=== PATIENT | female | born 1935 | race Caucasian/White ===

== ENCOUNTER 2023-06-06 11:35 | Observation (INO) ==
[2023-06-06 12:59] LABS: Basophils # (auto) 0.04 K/uL (0.00-0.20); Basophils % (auto) 0.4 %; Eosinophils # (auto) 0.42 K/uL (0.00-0.50); Eosinophils % (auto) 4.6 %; Hematocrit (blood only) 37.2 % (37.0-47.0); Immature Granulocytes # (auto) 0.03 K/uL (0.01-0.20); Immature Granulocytes % (auto) 0.3 %; Lymphocytes # (auto) 2.32 K/uL (1.20-3.40); Lymphocytes % (auto) 25.6 %; Mean Corpuscular Hemoglobin 27.6 pg (25.0-34.0); Mean Corpuscular Hgb Conc 32.3 g/dL (32.0-36.0); Mean Corpuscular Volume 85.7 fL (80.0-100.0); Mean Platelet Volume 10.6 fL (9.4-12.4); Monocytes # (auto) 0.94 K/uL (0.11-0.59); Monocytes % (auto) 10.4 %; Neutrophils % (auto) 58.7 %; Platelet Count 204 K/uL (130-400); RDW Standard Deviation 40.6 fL (36.4-46.3); Red Blood Count 4.34 M/uL (4.20-5.40); White Blood Count 9.05 K/ul (4.8-10.8)
--- NOTE | 2023-06-06 13:09 | XRay Report ---
XR chest 1V not portable HISTORY: fever COMPARISON: None. FINDINGS: No pneumothorax. No pleural effusions. The cardiac silhouette is mildly enlarged. No eviden ce for pulmonary edema. The upper lungs zones are clear. Small patchy densities at the right lung bas e. Left coronary artery stent is noted. No acute fractures. Degenerative changes within the shoulders . IMPRESSION: Small patchy density at the right lung base. This favors a pneumonia and could be due to prior aspira tion. ACT 112: Negative or not required by law. Electronically signed by: Hong Cherry M.D. 06/06/2023 1:08 PM
[2023-06-06 13:18] LABS: Troponin I High Sensitivity 11.9 pg/ml (0-14)
[2023-06-06 13:19] LABS: Albumin Globulin Ratio 1.1 (0.9-2); Albumin Level 4.1 gm/dl (3.4-5.0); BUN Creatinine Ratio 20.1 (10-20); Bilirubin,Total 0.6 mg/dl (0.2-1.0); Creatinine Clr Calc Pharmacy 25.4 ml/min; Est GFR (African American) 41.8 ml/min; Globulin 3.7 gm/dl (2.5-4.0); Potassium 4.5 mmol/L (3.5-5.1); Total Protein 7.8 gm/dl (6.0-8.3)
[2023-06-06 13:30] LABS: Appearance Urine Cloudy (Clear); Bacteria Urine Automated 2+ (Negative); Bilirubin Urine Negative (Negative); Blood Urine 1+ (Negative); Color Urine Dark Yellow; Epithelial Cell Urine Auto >30 /lpf (0-5); Glucose Urine UA Trace (Negative); Ketones Urine Trace (Negative); Leukocyte Esterase Urine 2+ (Negative); Nitrite Urine Positive (Negative); Protein Urine 2+ (Negative); Specific Gravity Urine 1.018 (1.000-1.030); Urobilinogen Urine Negative (Negative); WBC Urine Automated >30 /hpf (0-5); pH Urine 5.5 (4.5-7.5)
--- NOTE | 2023-06-06 14:09 | Emergency Department Note ---
Impression & Plan Recurrent UTI, Pneumonia ED Provider Note NAME: PHUC LEWIS AGE: 87 SEX: F : 1935 ARRIVES VIA: Walk-In INFORMANT: Patient ED PROVIDER(S): Jose De Jesus Santana DO CHIEF COMPLAINT: Cough congestion fevers and shaking chills HPI: Patient is an 87-year-old female with a past medical history of urinary incontinence and recurrent UTIs who presents to the ER for cough, congestion, and shaking chills which been present since this past Sunday. She admits to fevers as high as 102. Last time she checked was yesterday. She does admit to some intermittent vomiting daily. She has no dysuria but has baseline incontinence. No belly pain. No headache or change in vision. No other exacerbating or remitting factors. ADDITIONAL HISTORY OBTAINED: Per HPI Chronic Medical/Social Conditions Affecting Care: Per HPI PAST MEDICAL HISTORY:See Below PAST SURGICAL HISTORY:See Below FAMILY HISTORY:See Below SOCIAL HISTORY:See Below HOME MEDICATIONS:See Below ALLERGIES:See Below VITALS:See Below PHYSICAL EXAMINATION: GENERAL: Sitting up in Chair, alert, well appearing, well nourished, no distress, non-toxic, intermittent cough EYE EXAM: normal conjunctiva. OROPHARYNX: no exudate, no erythema, lips, buccal mucosa, and tongue normal and mucous membranes are moist NECK: supple, no nuchal rigidity, no adenopathy, non-tender LUNGS: Clear to auscultation. Normal chest wall mechanics HEART: no murmurs, S1 normal and S2 normal ABDOMEN: abdomen soft, non-tender, normo-active bowel sounds, no masses, no rebound or guarding. UPPER EXTREMITIES: upper extremities are grossly normal. LOWER EXTREMITIES: No pitting edema. NEURO EXAM: Normal sensorium, cranial nerves II-XII grossly intact, normal speech, no gross weakness of arms, no gross weakness of legs. MEDICAL DECISION MAKING: Patient is an 87-year-old female who presents ER with above-stated complaint. IV was established blood work was obtained. Labs show no significant leukocytosis or anemia. BMP with mild hyponatremia 133. Creatinine 1.3. LFTs bilirubin was unremarkable. Troponin was negative. Lipase was normal. UA was contaminated but does suggest UTI with nitrates and +2 bacteria. Viral panel was positive for influenza. Chest x-ray with infiltrates per radiology. Patient was covered with IV Rocephin and azithromycin. She given IV fluids. Updated bedside. Discussed with the hospitalist admitted for further workup. Rocephin will cover both UTI and pneumonia in combination with the azithromycin Consults/Care Managements Discussions: Per MDM Triage Nursing notes reviewed. Limited review of prior medical records performed Vital Signs: reviewed and remarkable for tachy Differential diagnosis: Differential diagnoses includes but is not limited to pneumonia, bronchitis, COPD/Asthma exacerbation, pneumothorax, pulmonary embolism, congestive heart failure, acute coronary syndrome ER treatment provided: See below Diagnostics interpreted by me include EKG and cardiac monitoring as listed below: -Cardiac Monitoring: An order was placed for continuous cardiac monitoring. The monitor shows a rate of 80 with sinus rhythm. -ECG: Sinus rhythm rate 86 Normal axis No PVCs QTc 416 -Laboratory studies:Interpreted by me as stated above in MDM and shown below. Imaging studies: Xrays: As interpreted by me: Portable AP upright 1 view of the chest per my read showed no focal infiltrate CTs show: none Procedures:none Critical Care: None Past Med/Surg History Social History Smoking Status: Never smoker Preferred Language: Danish Feels Safe at Home: Yes Allergies Allergies Allergy/AdvReac Type Severity Reaction Status Date / Time No Known Allergies Allergy Unverified 03/20/23 11:14 Home Meds Home Medications Medication Instructions Recorded Confirmed amlodipine 5 mg tablet 5 mg PO DAILY 03/20/23 06/06/23 aspirin 81 mg tablet,delayed 81 mg PO DAILY 03/20/23 06/06/23 release (Adult Low Dose Aspirin) linagliptin 5 mg tablet (Tradjenta) 5 mg PO DAILY 03/20/23 06/06/23 metoprolol succinate 25 mg 25 mg PO BID 03/20/23 06/06/23 tablet,extended release 24 hr nitroglycerin 2.5 mg 2.5 mg PO BID 03/20/23 03/20/23 capsule,extended release pantoprazole 40 mg tablet,delayed 40 mg PO DAILY 03/20/23 06/06/23 release ergocalciferol (vitamin D2) 1,250 1,250 mcg PO WK 06/06/23 06/06/23 mcg (50,000 unit) capsule fluticasone propionate 50 50 mcg intranasal DAILY 06/06/23 06/06/23 mcg/actuation nasal spray,suspension hydrochlorothiazide 25 mg tablet 25 mg PO DAILY 06/06/23 06/06/23 isosorbide mononitrate 60 mg 60 mg PO DAILY 06/06/23 06/06/23 tablet,extended release 24 hr lisinopril 20 mg tablet 20 mg PO DAILY 06/06/23 06/06/23 magnesium oxide 400 mg (241.3 mg 400 mg PO BID 06/06/23 06/06/23 magnesium) tablet rosuvastatin 20 mg tablet 20 mg PO DAILY 06/06/23 06/06/23 semaglutide 0.25 mg or 0.5 mg (2 0.25 mg subcut WK 06/06/23 06/06/23 mg/3 mL) subcutaneous pen injector (Ozempic) Results & Data (ED) Vital Signs Vital Signs - 24 hr 06/06/23 11:36 06/06/23 11:36 06/06/23 14:39 Temperature 36.6 C Temperature Source Temporal Artery Scan Pulse Rate 108 H Pulse Rate [Apical] 90 Respiratory Rate 18 16 16 Respiratory Depth Normal Blood Pressure 133/66 Blood Pressure [Left Arm] 151/94 H Blood Pressure Mean 88 Blood Pressure Mean [Left Arm] 113 Pulse Oximetry 97 97 Oxygen Delivery Method Room Air Room Air Sepsis Recent Fever Within 48 Hours No Sepsis New/Unexplained Change in Mental Status N/A Sepsis Action Taken by Nursing No Action Required Laboratory Data 06/06/23 12:29 06/06/23 12:26 Lab Results 06/06/23 06/06/23 06/06/23 Range/Units 12:26 12:29 13:08 WBC 9.05 (4.8-10.8) K/ul RBC 4.34 (4.20-5.40) M/uL Hgb 12.0 (12.0-16.0) g/dl Hct 37.2 (37.0-47.0) % MCV 85.7 (80.0-100.0) fL MCH 27.6 (25.0-34.0) pg MCHC 32.3 (32.0-36.0) g/dL RDW Std Deviation 40.6 (36.4-46.3) fL RDW Coeff of Ingris 13.0 (11.5-14.5) % Plt Count 204 (130-400) K/uL MPV 10.6 (9.4-12.4) fL Immature Gran % (Auto) 0.3 % Neut % (Auto) 58.7 % Lymph % (Auto) 25.6 % [place] % (Auto) 10.4 % Eos % (Auto) 4.6 % Baso % (Auto) 0.4 % Neut # (Auto) 5.30 (1.40-6.50) K/uL Lymph # (Auto) 2.32 (1.20-3.40) K/uL [place] # (Auto) 0.94 H (0.11-0.59) K/uL Eos # (Auto) 0.42 (0.00-0.50) K/uL Baso # (Auto) 0.04 (0.00-0.20) K/uL Immature Gran # (Auto) 0.03 (0.01-0.20) K/uL Sodium 133 L (136-145) mmol/L Potassium 4.5 (3.5-5.1) mmol/L Chloride 95 L (98-107) mmol/L Carbon Dioxide 27 (21-32) mmol/L Anion Gap 11 (3-11) BUN 27 H (6-23) mg/dl Creatinine 1.34 H (0.6-1.2) mg/dl Est Cr Clr Drug Dosing 25.4 ml/min Est GFR ( Amer) 41.8 ml/min Est GFR (Non-Af Amer) 36.0 ml/min BUN/Creatinine Ratio 20.1 H (10-20) Glucose 227 H (70-99(Fasting)) mg/dl Calcium 10.0 (8.6-10.3) mg/dl Total Bilirubin 0.6 (0.2-1.0) mg/dl AST 33 (13-39) U/L ALT 21 (7-52) U/L Alkaline Phosphatase 63 (34-104) U/L Troponin I High Sens 11.9 (0-14) pg/ml Total Protein 7.8 (6.0-8.3) gm/dl Albumin 4.1 (3.4-5.0) gm/dl Globulin 3.7 (2.5-4.0) gm/dl Albumin/Globulin Ratio 1.1 (0.9-2) Lipase 34 (11-82) U/L Urine Color Dark Yellow Urine Appearance Cloudy A (Clear) Urine pH 5.5 (4.5-7.5) Ur Specific [place] 1.018 (1.000-1.030) Urine Protein 2+ H (Negative) Urine Glucose (UA) Trace H (Negative) Urine Ketones Trace H (Negative) Urine Blood 1+ H (Negative) Urine Nitrite Positive A (Negative) Urine Bilirubin Negative (Negative) Urine Urobilinogen Negative (Negative) Ur Leukocyte Esterase 2+ H (Negative) Urine WBC (Auto) >30 H (0-5) /hpf Urine RBC (Auto) 5-10 H (0-4) /hpf U Hyaline Cast (Auto) 1-5 (0-5) /lpf U Epithel Cells (Auto) >30 H (0-5) /lpf Urine Bacteria (Auto) 2+ H (Negative) Administered Medications Amlodipine Besylate (Amlodipine Besylate 5 Mg Tab) 5 mg PO DAILY RANJANA Stop: 07/06/23 16:50 Last Admin: 06/06/23 18:44 Dose: 5 mg Documented By: OAC Aspirin (Aspirin 81 Mg Ectab) 81 mg PO DAILY RANJANA Stop: 07/06/23 16:50 Last Admin: 06/06/23 18:44 Dose: 81 mg Documented By: OAC Insulin Aspart (Insulin Aspart Per Unit Charge) 0 units SC ACHS RANJANA Stop: 07/06/23 16:29 Last Admin: 06/06/23 18:44 Dose: 3 units Documented By: OAC Co-signed By: ACC Lisinopril (Lisinopril 20 Mg Tab) 20 mg PO DAILY RANJANA Stop: 07/06/23 16:50 Last Admin: 06/06/23 18:46 Dose: 20 mg Documented By: OAC Discontinued Medications Ceftriaxone Sodium (Rocephin) 2,000 mg in 50 mls @ 100 mls/hr IV NOW STA Stop: 06/06/23 14:16 Last Infusion: 06/06/23 15:47 Dose: Infused Documented By: Admin: 06/06/23 15:06 Dose: 100 mls/hr Documented By: OAC Azithromycin 500 mg/ Dextrose 255 mls @ 127.5 mls/hr IV NOW STA Stop: 06/06/23 15:46 Last Admin: 06/06/23 15:39 Dose: 127.5 mls/hr Documented By: OAC Sodium Chloride (Nss) 1,000 mls @ 999 mls/hr IV .Q1H1M ONE Stop: 06/06/23 14:47 Last Infusion: 06/06/23 15:48 Dose: Infused Documented By: Admin: 06/06/23 14:31 Dose: 999 mls/hr Documented By: KV Imaging Data Radiologist's Impression: Chest X-Ray 06/06/23 12:34 XR chest 1V not portable HISTORY: fever COMPARISON: None. FINDINGS: No pneumothorax. No pleural effusions. The cardiac silhouette is mildly enlarged. No evidence for pulmonary edema. The upper lungs zones are clear. Small patchy densities at the right lung base. Left coronary artery stent is noted. No acute fractures. Degenerative changes within the shoulders. IMPRESSION: Small patchy density at the right lung base. This favors a pneumonia and could be due to prior aspiration. ACT 112: Negative or not required by law. Electronically signed by: Hong Cherry M.D. 06/06/2023 1:08 PM Discharge Plan Visit Data Chief Complaint: Illness Stated Complaint: UTI, POSSIBLE BLOOD CLOT, WEAKNESS, FEVER, CONGEST ED Provider: Jose De Jesus Santana Discharge Problem: Recurrent UTI, Pneumonia Patient Disposition: Admitted As Inpatient Discharge Instructions Interventions: ED Discharge Assessment Last Done: 06/06/23 16:51 Discharge Problem: Pneumonia Qualifiers: Pneumonia type: due to unspecified organism Laterality: unspecified laterality Lung location: unspecified part of lung Qualified Code(s): J18.9 - Pneumonia, unspecified organism
[2023-06-06] MEDS: SODIUM CHLORIDE 0.9% 1,000 ML IV ONE (14:31)
[2023-06-06] MEDS ORDERED: GLUCOSE 40% GEL 15 GM TUBE PO PRN (14:43)
[2023-06-06] MEDS ORDERED: CARBOHYDRATES FOR HYPOGLYCEMIA PO PRN (14:43)
[2023-06-06] MEDS ORDERED: GLUCAGON FOR INJ 1 MG VIAL SQ PRN (14:43)
[2023-06-06] MEDS ORDERED: DEXTROSE 50% 50 ML SYRINGE IV PRN (14:43)
[2023-06-06] MEDS ORDERED: GLUCOSE 10 TAB/TUBE PO PRN (14:43)
--- NOTE | 2023-06-06 14:58 | History & Physical Report ---
Date of Service June 06, 2023 Assessment & Plan (1) Recurrent UTI: Plan: Assessment: 1. Right lower lobe pneumonia. IV Rocephin IV azithromycin, speech therapy for swallow eval. The patient denies any choking with eating or drinking. Sputum cultures ordered. 2. Urinary tract infection with recurrent UTIs. Follows with urology. IV Rocephin. Urine cultures. Blood cultures have been obtained as well. 3. Rule out respiratory viral illness bio fire pending. 4. Recent hospitalization at [facility] we will try to obtain records. This was last and discharged Sunday. Was supposed to be on oral antibiotic does not know the name of this but was not taking due to nausea. 5. Diabetes mellitus type 2 [id number]. Basal bolus insulin sliding scales been ordered. 6. GERD-continue home medications. 7. Hypertension-continue home medications. 8. Debility the patient is beginning weaker at home per the patient and daughter with consulted PT for evaluation. Plan: As described above. Please refer to orders for further planning. History of Present Illness Chief Complaint: Shortness of breath, cough, fever, rigor, Primary Care Provider: KERRY Bermudez This is a pleasant 87-year-old female who has had the above symptoms ongoing on and off for approximately a week. He actually was inpatient at [facility] from night last week to Sunday. She was discharged home on oral antibiotic but did not take them because it made her nauseated. Today her symptomatology continues to worsen with rigors and chills and fever. She had a fever of 102 at home. She presented for further evaluation and treatment to the ER. Chest x-ray in the ER showed a right lower lobe pneumonia. Urinalysis was positive for UTI. Bio fire has been ordered and yet to be collected at the time of request for admission we have ordered this to be done stat. Blood cultures were ordered and will be collected CLIFF. Course in the ER she was ordered IV Rocephin IV azithromycin and Tylenol. We will continue the IV Rocephin IV azithromycin sputum cultures urine cultures blood cultures. We will try to obtain records from [facility]. We do anticipate at least 2 overnight stay. Allergies Allergy/AdvReac Type Severity Reaction Status Date / Time No Known Allergies Allergy Unverified 03/20/23 11:14 Home Medications Medication Instructions Recorded Confirmed Type amlodipine 5 mg tablet 5 mg PO DAILY 03/20/23 06/06/23 History aspirin 81 mg tablet,delayed 81 mg PO DAILY 03/20/23 06/06/23 History release (Adult Low Dose Aspirin) hydrochlorothiazide 12.5 mg capsule 25 mg PO DAILY 03/20/23 06/06/23 History isosorbide mononitrate 20 mg tablet 60 mg PO DAILY 03/20/23 06/06/23 History linagliptin 5 mg tablet (Tradjenta) 5 mg PO DAILY 03/20/23 06/06/23 History lisinopril 10 mg tablet 20 mg PO DAILY 03/20/23 06/06/23 History magnesium oxide 500 mg capsule 400 mg PO BID 03/20/23 06/06/23 History metoprolol succinate 25 mg 25 mg PO BID 03/20/23 06/06/23 History tablet,extended release 24 hr nitroglycerin 2.5 mg 2.5 mg PO BID 03/20/23 03/20/23 History capsule,extended release pantoprazole 40 mg tablet,delayed 40 mg PO DAILY 03/20/23 06/06/23 History release rosuvastatin 10 mg tablet 20 mg PO DAILY 03/20/23 06/06/23 History Past Med/Surg History Social History Smoking Status: Never smoker Preferred Language: Irish Feels Safe at Home: Yes Review of Systems Review of Systems: A 10 point review of system was obtained and unless otherwise stated here or in history of present illness are negative and noncontributory to chief complaint. Past medical history: Positive for met-yijpwdy-hcdsulkte diabetes mellitus, hypertension, dyslipidemia, gastroesophageal reflux disease. Past surgical history: Reviewed and noncontributory to present illness. Social history: The patient lives at home with her daughter. Typically ambulates with a cane while outside the home independent inside the home but has becoming weaker over the last 1 to 2 weeks. Physical Exam Physical Exam: In General: In general this is a 7-year-old female is alert and oriented x 3, exam she is accompanied by her daughter at the time my examination she is in no acute distress. HEENT: Normocephalic atraumatic pupils are equal round and reactive to light bilaterally. No scleral icterus no conjunctival injection external auditory canals are patent septum is in the midline nose is without discharge oral mucosa is pink and moist without lesion. NECK: Supple no rigidity no lymphadenopathy no thyromegaly no carotid bruits no JVD no masses. HEART: Regular rate and rhythm I do not appreciate any ectopy or rub. No murmur. LUNGS: Diminished bilaterally with rhonchi in the right lower lung [place]. ABDOMEN: Soft nontender, no rebound, no peritoneal signs, positive bowel sounds, no appreciable organomegaly. EXTREMITIES: Intact, no peripheral cyanosis, clubbing or edema. Strength is 5 out of 5 in extremities x4, no pathological reflexes. NEUROLOGICAL: Cranial nerves II through XII are grossly intact with no focal deficit elicited upon examination. No tremor. Results & Data Results & Data Vital Signs (Past 12 Hours) Vital Signs Temp Pulse Pulse Resp BP BP Pulse Ox 06/06/23 14:45 83 06/06/23 14:39 90 16 151/94 H 97 06/06/23 11:36 16 06/06/23 11:36 36.6 C 108 H 18 133/66 97 O2 Del Method 06/06/23 14:45 06/06/23 14:39 Room Air 06/06/23 11:36 06/06/23 11:36 Room Air Code Status & VTE Plan Code Status CODE STATUS-full code I did discuss personally with the patient. VTE Prophylaxis Plan VTE Prophylaxis will be ordered: Yes PG Care Time/CCT Total # of Minutes Spent Total Time Spent with Patient: Total time spent is greater than 50% in coordination of care (as documented) at patient's floor/unit and/or counseling patient: Coding Level of Care Code 77181 INT INP/OBS CARE 3/75MIN Diagnoses Recurrent UTI N39.0
[2023-06-06] MEDS: cefTRIAXone SODIUM 2,000 MG/50 ML BAG IV STA (15:06)
--- NOTE | 2023-06-06 15:18 | Electrocardiogram Report ---
Test Reason : Blood Pressure : / mmHG Vent. Rate : 086 BPM Atrial Rate : 086 BPM P-R Int : 172 ms QRS Dur : 068 ms QT Int : 348 ms P-R-T Axes : 012 006 024 degrees QTc Int : 416 ms Normal sinus rhythm Minimal voltage criteria for LVH, may be normal variant ( R in aVL ) Borderline ECG No previous ECGs available Confirmed by Eduardo Callaway ([id number]) on 06/06/2023 3:16:57 PM Referred By: Confirmed By:Eduardo Callaway
[2023-06-06 15:37] LABS: Adenovirus PCR Not Detected (NotDetected); Bordetella parapertussis PCR Not Detected (NotDetected); Bordetella pertussis PCR Not Detected (NotDetected); Chlamydia pneumoniae PCR Not Detected (NotDetected); Coronavirus 229E PCR Not Detected (NotDetected); Coronavirus CoV-2 (COVID19)PCR Not Detected (NotDetected); Coronavirus HKU1 PCR Not Detected (NotDetected); Coronavirus NL63 PCR Not Detected (NotDetected); Coronavirus OC43PCR Not Detected (NotDetected); Human Metapneumovirus PCR Not Detected (NotDetected); Influenza A (H3) PCR DETECTED (NotDetected); Influenza B PCR Not Detected (NotDetected); Mycoplasma pneumoniae PCR Not Detected (NotDetected); Parainfluenza Virus 1 PCR Not Detected (NotDetected); Parainfluenza Virus 2 PCR Not Detected (NotDetected); Parainfluenza Virus 3 PCR Not Detected (NotDetected); Parainfluenza Virus 4 PCR Not Detected (NotDetected); Respiratory Syncytial VirusPCR Not Detected (NotDetected); Rhinovirus/Enterovirus PCR Not Detected (NotDetected)
[2023-06-06] MEDS: AZITHROMYCIN 500 MG in DEXTROSE 5% 250 ML IV STA (15:39)
--- NOTE | 2023-06-06 17:15 | Communication Note ---
Date of Service: June 06, 2023 Bio fire panel came back positive for influenza A. We did inform the patient of the acute finding. Will add renally dosed Tamiflu. New additional assessment: Influenza A positivity acutely droplet isolation Tamiflu supportive care
[2023-06-06] MEDS: ASPIRIN 81 MG ECTAB PO SCH (18:44)
[2023-06-06] MEDS: INSULIN ASPART PER UNIT CHARGE SC SCH (18:44)
[2023-06-06] MEDS: amLODIPine BESYLATE 5 MG TAB PO SCH (18:44)
[2023-06-06] MEDS: lisinopril 20 MG TAB PO SCH (18:46)
[2023-06-06] MEDS: MAGNESIUM OXIDE 400 MG TAB PO SCH (18:47)
[2023-06-06] MEDS: METOPROLOL SUCC 25MG EXT REL TAB PO SCH (20:29)
[2023-06-06] MEDS: ISOSORBIDE MONO EXTENDED REL 60 MG TABCR PO SCH (20:49)
[2023-06-06] MEDS: OSELTAMIVIR PHOSPHATE SUSP 30 MG/5 ML UDP PO SCH (20:49)
[2023-06-06] MEDS: LANTUS PER UNIT CHARGE SQ SCH (22:20)
[2023-06-06] MEDS: HEPARIN SOD 5,000 UNIT/0.5 ML VIAL SQ SCH (22:21)
[2023-06-06] MEDS: MELATONIN 3 MG TAB PO PRN (23:59)
--- OUTSIDE RECORDS SUMMARY | 2023-06-07 04:14 | External Medical Summary | Continuity of Care Document ---
Author Name Unknown Organization [facility] [address] [address] Sandip Address [address] [place] [id number] Care Team Providers Care Marine Electrician Name Role Phone Tessa Gomes Primary Care Physician [phone] [id number] Date(s): 05/11/23 - 05/11/[address], [address] [place] [address] [phone] Discharge Disposition: Home or Self Care Attending Physician: DO Drake Jason D Referring Physician: DO Drake Jason D Allergies, Adverse Reactions, Alerts No Known Allergies Immunizations Given and Recorded Vaccine Date Status Refusal Reason pneumococcal 20-valent conjugate vaccine 1 05/20/22 Given Not Given Vaccine Date Status Refusal Reason influenza virus vaccine, inactivated 05/17/22 Not Given Patient Refuses 1Early/Late Reason: Early/Late Reason: Other : O Medications amLODIPine 5 mg oral tablet take 1 tablet by mouth once daily Start Date: 04/14/22 Status: Ordered aspirin 81 mg oral delayed release tablet Start: 04/28/22 14:40:00 EST, 1 tab, PO, Daily Start Date: 04/28/22 Status: Ordered glimepiride 4 mg oral tablet Start: 04/14/22 10:53:00 EST, 1 tab, PO, Daily Start Date: 04/14/22 Status: Ordered hydroCHLOROthiazide 25 mg oral tablet take 1 tablet by mouth once daily Start Date: 04/14/22 Status: Ordered Imdur 60 mg oral tablet, extended release Start: 08/16/22 13:48:00 EDT, 1 tab, PO, qAM, Disp# 90 tab, Refills: 3, Pharmacy: [facility] #[id number] Start Date: 08/16/22 Status: Ordered lisinopril 20 mg oral tablet Start: 11/08/22 11:19:00 EDT, 1 tab, PO, Daily, Disp# 90 tab, Refills: 3, [facility]acy: [facility] #[id number] Start Date: 11/08/22 Status: Ordered magnesium oxide 400 mg (241.3 mg elemental magnesium) oral tablet Start: 07/03/22 10:10:00 EDT, 2 tab, PO, Daily Start Date: 07/03/22 Status: Ordered Metoprolol Tartrate 25 mg oral tablet take 1 tablet by mouth twice a day Start Date: 04/14/22 Status: Ordered nitroglycerin 0.4 mg sublingual tablet Start: 05/25/22 15:49:00 EST, 1 tab, SL, q5min, Disp# 20 tab, Refills: 1, PRN: Chest Pain, Pharmacy: [facility] Start Date: 05/25/22 Status: Ordered oxybutynin Start: 04/14/22 10:56:00 EST, 15 mg =, Daily Start Date: 04/14/22 Status: Ordered pantoprazole 40 mg oral delayed release tablet take 1 tablet by mouth daily 15-30 MINUTE BEFORE BEDTIME Start Date: 04/14/22 Status: Ordered RA VITAMIN C 500 MG TABLET take 1 tablet by mouth once daily Start Date: 04/14/22 Status: Ordered rosuvastatin 20 mg oral tablet Start: 09/13/22 13:45:00 EDT, 1 tab, PO, Daily, Disp# 30 tab, Refills: 6, Pharmacy: [facility] #[id number] Start Date: 09/13/22 Status: Ordered Tradjenta 5 mg oral tablet Start: 08/16/22 13:03:00 EDT, 1 tab, PO, Disp# 30 tab Start Date: 08/16/22 Status: Ordered Tylenol Start: 05/25/22 12:31:00 EST, 650 mg =, PO, q8h, PRN: fever/mild pain (1-3) Start Date: 05/25/22 Status: Ordered Vitamin D2 50,000 intl units (1.25 mg) oral capsule take 1 capsule by mouth every week Start Date: 04/14/22 Status: Ordered Problem List Condition Confirmation Course Effective Dates Status H ealth Status Informant CAD (coronary artery disease) Confirmed Active Hyperlipidemia Confirmed Active HTN (hypertension) Confirmed Active Colon cancer Confirmed Active Procedures Procedure Date Related Diagnosis Body Site Status Colonoscopy 02/2022 Completed EGD (esophagogastroduodenosc opy) gastric outlet reduction 02/2022 Complet ed Hysterectomy Completed Lumbar Completed Structure of left heel Co mpleted Results Radiology Reports * Exam Date Time Procedure Performing Provider Status 05/11/23 11:49 AM Echo TransTHORacic TTE Complete Ofe Rodriguez; Final Notes: (Echo TransTHORacic TTE Complete) Reason For Exam: cad mi 05/2022 Echo TransTHORacic TTE Complete Report Signatures Finalized by Dr. Arthur Drake MD on 05/11/2023 12:44 PM [place] Act 112: No-No further action needed Summary 1. Normal left ventricular size. 2. Hyperdynamic left ventricular systolic function with no regional wall motion abnormalities. 3. Ejection fraction as calculated by Biplane Simpsons method is 75%. 4. Asymmetric basal septal hypertrophy of the elderly. 5. Grade I diastolic dysfunction of the left ventricle (impaired relaxation pattern) with elevated left atrial pressure. 6. Normal right ventricular size and function. 7. Normal biatrial size. 8. No significant valvular abnormalities. 9. Unable to estimate the pulmonary artery systolic pressure due to insufficient TR. 10. Compared to the previous study performed 05/21/2022, there is no longer a distal LAD wall motion abnormality appreciated. Patient Info Name: PHUC LEWIS Age: 87 years : 1935 Gender: Female Ht: 160 cm Wt: 61 kg BSA: 1.66 m2 HR: 68 bpm BP: 160 / 62 mmHg Heart Rhythm: Sinus Rhythm Technical Quality: Fair Exam Date: 05/11/2023 11:01 AM Exam Location: [facility] Patient Status: Outpatient Staff Ordering Physician: Arthur Drake Mail Superintendent: Ofe Rodriguez RDCS, T Attending Physician: Arthur Drake ([email or web address]) Study Info CPT 92954 - Indications I25.10 - CAD (coronary artery disease) Procedure(s) * A complete two-dimensional, color flow and Doppler transthoracic echocardiogram was performed. Exam Type: Cardiac Basic Left Ventricle Normal left ventricular size. Hyperdynamic left ventricular systolic function with no regional wall motion abnormalities. Ejection fraction as calculated by Biplane Simpsons method is 75%. Asymmetric basal septal hypertrophy of the elderly. Grade I diastolic dysfunction of the left ventricle (impaired relaxation pattern) with elevated left atrial pressure. Right Ventricle Normal right ventricular size and function. TAPSE is normal, 2.0 cm. Left Atrium Normal left atrial size. Right Atrium Normal right atrial size. Atrial Septum Hypermobile atrial septum; appears intact by color Doppler. Aortic Valve Calcified, tricuspid aortic valve without stenosis. Pulmonic Valve Structurally unremarkable pulmonic valve with no significant flow abnormalities. Estimated pulmonary arterial mean pressure 8 mmHg. Mitral Valve Calcified mitral valve annulus without stenosis. Trace mitral valve regurgitation. Tricuspid Valve Structurally unremarkable tricuspid valve with no significant flow abnormalities. Unable to estimate the pulmonary artery systolic pressure due to insufficient TR. Pericardium/Pleural No pericardial effusion. Inferior Vena Cava Normal IVC size and inspiratory collapse. Aorta Normal size aortic root and aortic arch. Calcified sinotubular junction and proximal descending thoracic aorta. Ascending aorta (3.3 cm). Left Ventricular Outflow Tract Name Value Normal LVOT 2D LVOT Diameter 1.6 cm LVOT Doppler LVOT Peak Velocity 1.35 m/s LVOT Peak Gradient 7 mmHg LVOT Mean Gradient 4 mmHg LVOT VTI 30.33 cm LVOT Stroke Volume 63.70 ml LVOT Stroke Volume Index 0.04 l/m2 LVOT Cardiac Output 4.33 l/min LVOT Cardiac Index 2.61 L/min/m2 Pulmonic Valve Name Value Normal PV 2D RVOT Diameter (2D) 1.9 cm 1.7-2.7 RVOT Doppler RVOT Peak Velocity 0.63 m/s RVOT Peak Gradient 2 mmHg PV Doppler PV Peak Velocity 1.09 m/s PV Peak Gradient 5 mmHg PV Regurgitation Doppler AZ Peak Velocity 1.13 m/s Mitral Valve Name Value Normal MV Doppler MV PHT 53 ms MV Diastolic Function MV E Peak Velocity 0.85 m/s <=0.50 MV A Peak Velocity 1.15 m/s MV E/A 0.74 <=0.80 MV Decel Time 183 ms MV Annular TDI MV Septal s' Velocity 6.85 cm/s MV Septal e' Velocity 6.09 cm/s >=7.00 MV E/e' (Septal) 13.9 <=8.0 MV Lateral s' Velocity 8.81 cm/s MV Lateral e' Velocity 5.66 cm/s >=10.00 MV E/e' (Lateral) 15.01 <=8.00 MV e' Average 5.87 MV E/e' (Average) 14.47 <=14.00 Tricuspid Valve Name Value Normal Estimated PAP/RSVP RA Pressure 3 mmHg <=5 PA Mean Pressure (AZ Velocity) 8 mmHg TV Diastolic Function TV E Peak Velocity 0.36 m/s TV A Peak Velocity 0.38 m/s TV E/A 0.94 0.80-2.00 TV Decel Time 141 ms >=120 TV Annular TDI TV Lateral Coral s' Velocity 11.3 cm/s 9.5-18.7 TV Lateral Coral e' Velocity 10.7 cm/s <7.8 TV E/e' 3.34 2.00-6.00 Aorta Name Value Normal Ascending Aorta Sinus of Valsalva Diameter 2.5 cm 2.7-3.3 Sinus of Valsalva Index 1.50 cm/m2 1.60-2.00 Prox Asc Ao Diameter 3.3 cm 2.3-3.1 Prox Asc Ao Diameter Index 2.02 cm/m2 1.30-1.90 Thoracic Aorta Ao Arch Diameter 3.2 cm Desc Ao Peak Velocity 0.62 m/s Desc Ao Peak Gradient 2 mmHg Venous Name Value Normal IVC/SVC IVC Diameter (Insp 2D) 0.6 cm IVC Diameter (Exp 2D) 1.5 cm <=2.1 IVC Diameter Percent Change (2D) 61 % >=50 Aortic Valve Name Value Normal AV Doppler AV Peak Velocity 1.53 m/s <2.00 AV Peak Gradient 9 mmHg AV Area (Cont Eq Steve) 1.8 cm2 AV Area Index (Cont Eq Steve) 1.11 cm2/m2 AV V1/V2 Ratio 0.88 AV Regurgitation 2D LVOT Area 2.1 cm2 Ventricles Name Value Normal LV Dimensions 2D/MM IVS Diastolic Thickness (2D) 1.0 cm 0.6-0.9 LVID Diastole (2D) 3.6 cm 3.3-5.1 LVIW Diastolic Thickness (2D) 0.9 cm 0.6-0.9 LVID Systole (2D) 2.3 cm 2.2-3.5 LVOT Diameter 1.6 cm LV Fractional Shortening/Ejection Fraction 2D/MM LV Fractional Shortening (2D) 37 % 27-45 LV Diastolic Volume (4C MOD) 44 ml LV Diastolic Volume (2C MOD) 37 ml LV Diastolic Volume (BP MOD) 40 ml 46-106 LV Diastolic Volume Index (BP MOD) 24.02 ml/m2 29.00-61.00 LV Systolic Volume (BP MOD) 10 ml 14-42 LV Systolic Volume Index (BP MOD) 6.19 ml/m2 8.00-24.00 LV EF (BP MOD) 74 % 58-69 LV SV (BP MOD) 29.57 ml RV Dimensions 2D/MM RV Basal Diastolic Dimension 3.1 cm 2.5-4.1 TAPSE 2.0 cm >=1.7 Atria Name Value Normal LA Dimensions LA Area (4C) 15.5 cm2 LA Length (4C) 4.9 cm LA Area (2C) 17.2 cm2 LA Length (2C) 5.2 cm LA Volume (4C A-L) 42.13 ml LA Volume (2C A-L) 47.97 ml LA Volume (BP A-L) 47 ml 22-52 LA Volume Index (BP A-L) 28.09 ml/m2 <=34.00 RA Dimensions RA Area (4C) 11.4 cm2 <=18.0 Final Signed by:DO Drake Jason D Signed (Electronic Signature):05/11/2023 11:01 Social History Social History Type Response Smoking Status Never smoked cigaret homero Sex Patient Care team information Care Team Personnel Name: MD Acuña Tiane Position: Resident - Pathologist Member Role: Lifetime Relationship Address: Address: [address] [place] [id number] [place] Name: Osman Treviño Erika Joy Position: Pharmacist Schedule II Member Role: Pharmacy - Lifetime Name: Bernabe Lopez Position: HIS Supervisor_P Member Role: HIS Lifetime Name: KERRY Gomes Michelle Lyn Position: Referring Member Role: Primary Care Provider Address: Address: [address] [place] [address] [place] Care Team Related Persons Name: KRZYSZTOF YOUNG
--- OUTSIDE RECORDS SUMMARY | 2023-06-07 04:14 | External Medical Summary | Continuity of Care Document ---
Author Name Unknown Organization [facility] [address] [facility] Address [address] [place] [id number] Care Team Providers Care Talent Development Manager Name Role Phone Tessa Gomes Primary Care Physician [phone] Encounter [facility] [id number] Date(s): 05/11/23 - 05/11/23 [facility] [address], [address] [place] [address] [phone] Encounter Diagnosis CAD in cantwell artery(Discharge Diagnosis) - 05/11/23 HTN (hypertension)(Discharge Diagnosis) - 05/11/23 HLD (hyperlipidemia)(Discharge Diagnosis) - 05/11/23 Dyspnea(Discharge Diagnosis) - 05/11/23 Discharge Disposition: Home or Self Care Attending Physician: KERRY Davis Sarah A Referring Physician: DO Drake Jason D Allergies, Adverse Reactions, Alerts No Known Allergies Assessment and Plan Extracted from: Title:Cardiology Office Visit Note Author:KERRY Christine rd, Sarah A Date:05/11/23 Impression: 1. NSTEMIwith subsequent successful PCIand placement of 2drug-eluting stentsto the LAD. 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 2. Dyslipidemia 3. Hypertension 4. Echocardiogram May 21 just prior to SD showing wall motion abnormalities in the LAD territory with hyperdynamic basal segments, ejection fraction of 60%, normal right ventricular function, no significant valvular disease Ms. Trent continues to feel weakness in her legs. She has tried a statin vacation in the past which did not help at all. I did recommend that she talk with her primary care provider about physical therapy but she is not interested at this time. She was going to tryto get a little more activity in the day to strengthen her legsby using a floor peddler that she has. She is having random episodes of shortness of breath.I recommended an event monitor to see if possibly she is having episodes of atrial fibrillationunderlying. She declines at this time. I will request her recent lab work from [facility]. If there is not a CMP and lipidsthat were drawnI will have her get those drawn as well. She has rare episodes of chest tightness. She is having a lot of incontinenceandis seeing urology who may be considering surgery. Certainly with her historyshe would be high riskforsurgical procedures. She will return to the clinic in 4 months Immunizations Given and Recorded Vaccine Date Status [...] qAM, Disp# 90 tab, Refills: 3, [facility]: [facility] #[id number] Start Date: 08/16/22 Status: Ordered lisinopril 20 mg oral tablet Start: 11/08/22 11:19:00 EDT, 1 tab, PO, Daily, Disp# 90 tab, Refills: 3, Pharmacy: [facility] #[id number] Start Date: 11/08/22 Status: Ordered magnesium oxide [...] tab, Refills: 1, PRN: Chest Pain, Pharmacy: [facility] Start Date: 05/25/22 Status: Ordered oxybutynin Start: [...] Daily, Disp# 30 tab, Refills: 6, [id number] Start Date: 09/13/22 Status: Ordered Tradjenta 5 [...] (hypertension) Confirmed Active Colon cancer Confirmed Active Diagnosis Diagnosis Type Effective Dates Health Status Cl inical Service Informant CAD in cantwell artery Discharge Diagnosis 05/11/23 Non-Specified Dyspnea Discharge Diagnosis 05/11/23 Non-Specified HLD (hyperlipidemia) Discharge Diagnosis 05/11/23 Non-Specified HTN (hypertension) Discharge Diagnosis 05/11/23 Non-Specified Procedures Procedure Date Related Diagnosis Body Site Status Colonoscopy 02/2022 Completed EGD (esophagogastroduodenosc opy) gastric outlet reduction 02/2022 Complet ed Hysterectomy Completed Lumbar Completed Structure of left heel Co mpleted Vital Signs Most recent to oldest [Reference Range]: 1 Patient Weight 59.4 kg (05/11/23 2:17 PM) Heart Rate 68 bpm (05/11/23 2:17 PM) Blood Pressure 114/48mmHg (05/11/23 2:17 PM) Cuff Pulse Pressure 66 mmHg (05/11/23 2:17 PM) Social History Social History Type Response Smoking Status Never smoked cigaret homero Sex Cardiology Outpatient Note * KERRY Davis Sarah A: PERFORM, MODIFY, MODIFY, MODIFY Event Display: Cardiology Outpt Note Authored Date: [id number] Primary Care Provider KERRY Gomes Michelle Lyn Referring Provider DO Drake Jason D History of Present Illness Ms. Trent presents for follow up of post op NSTEMI 05/2022 with subsequent GERARDO x2 to the proximal LAD, htn, and dyslipidemia. She continues to feel weak in her legs. She is also sob at times not associated with exertion. Sometimes she wakes up with it. It is not associated with position. No cough. She has lost weight on Ozempic which was started by her pcp for diabetes. She is having incontinence issues and is seeing urology, surgery might be under consideration. She has rare chest tightness. She has only taken nitro twice in the last 6 months. She notes that she has had similar symptoms all her life but it also feels the way it did before her stents. She is unable to go for walks due to foot injury but she does stay busy during the day. Can't walk due to foot injury but she is busy and moves around with a cane. She does not have sob or chest discomfort with exertion. Review of Systems All other systems reviewed and negative except as discussed in the HPI Physical Exam Vitals & Measurements HR:68(Monitored) BP:114/48 SpO2:98% WT:59.400kg(Dosing) WT:59.4kg Physical Examination General: Alert and oriented, No acute distress. Respiratory: Lungs are clear to auscultation, Respirations are non-labored. Cardiovascular: Normal rate, Regular rhythm, No murmur, No edema, no carotid bruits to auscultation bilaterally. Integumentary: Warm, Dry, [place] Neurologic: Alert, Oriented. Cognition and Speech: Speech clear and coherent. Psychiatric: Cooperative, Appropriate mood & affect. Assessment/Plan Impression: 1. 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 2. Dyslipidemia 3. Hypertension 4. Echocardiogram May 21 just prior to SD showing wall motion abnormalities in the LAD territory with hyperdynamic basal segments, ejection fraction of 60%, normal right ventricular function, nosignificant valvular disease Ms. Trent continues to feel weakness in her legs. She has tried a statin vacation in the past which did not help at all. I did recommend that she talk with her primary care provider about physical therapy but she is not interested at this time. She was going to tryto get a little more activity in the day to strengthen her legsby using a floor peddler that she has. She is having random episodes of shortness of breath.I recommended an event monitor to see if possibly she is having episodes of atrial fibrillationunderlying. She declines at this time. I will request her recent lab work from [facility]. If there is not a CMP and lipidsthat were drawnI will have her get those drawn as well. She has rare episodes of chest tightness. She is having a lot of incontinenceandis seeing urology who may be considering surgery. Certainly with her historyshe would be high riskforsurgical procedures. She will return to the clinic in 4 months Problem List/Past Medical History Ongoing CAD (coronary artery disease) Colon cancer HTN (hypertension) Hyperlipidemia Procedure/Surgical History EGD (esophagogastroduodenoscopy) gastric outlet reduction (02/2022)Colonoscopy (02/2022)HysterectomyLumbarStructure of left heel Medications acetaminophen(Tylenol), 650 mg= 20.3 mL, PO, q8h, PRN amLODIPine(amLODIPine 5 mg oral tablet) aspirin(aspirin 81 mg oral delayed release tablet), 81 mg= 1 tab, PO, Daily ergocalciferol(Vitamin D2 50,000 intl units (1.25 mg) oral capsule) glimepiride(glimepiride 4 mg oral tablet), 4 mg= 1 tab, PO, Daily hydroCHLOROthiazide(hydroCHLOROthiazide 25 mg oral tablet) isosorbide mononitrate(Imdur 60 mg oral tablet, extended release), 60 mg= 1 tab, PO, qAM, 3 refills linagliptin(Tradjenta 5 mg oral tablet), 5 mg= 1 tab, PO lisinopril(lisinopril 20 mg oral tablet), 20 mg= 1 tab, PO, Daily, 3 refills magnesium oxide(magnesium oxide 400 mg (241.3 mg elemental magnesium) oral tablet), 800 mg= 2 tab, PO, Daily metoprolol(Metoprolol Tartrate 25 mg oral tablet) nitroglycerin(nitroglycerin 0.4 mg sublingual tablet), 0.4 mg= 1 tab, SL, q5min, PRN, 1 refills oxybutynin, 15 mg, Daily pantoprazole(pantoprazole 40 mg oral delayed release tablet) rosuvastatin(rosuvastatin 20 mg oral tablet), 20 mg= 1 tab, PO, Daily, 6 refills unlisted medication(RA VITAMIN C 500 MG TABLET) Allergies NKA Social History Smoking Status Never smoked cigarettes Electronic Signature on File CC: KERRY Dorantes [place] [id number] * Electronically Reviewed/Signed by: KERRY Montano Author Signature Dt/Tm:05/11/2023 04:55 PM [facility] [facility] Patient Care team information Care Team Personnel Name: MD Acuña Tiane Position: Resident - Pathologist Member Role: Lifetime Relationship Address: Address: [address] [place] [phone] [place] Name: Osman Treviño Erika Joy Position: Pharmacist Schedule II Member Role: Pharmacy - Lifetime Name: Bernabe Lopez Position: HIS Supervisor_P Member Role: HIS Lifetime Name: KERRY Gomes Michelle Lyn Position: Referring Member Role: Primary Care Provider Address: Address: [address] [address] [place] Care Team Related Persons Name: KRZYSZTOF YOUNG
[2023-06-07 08:21] LABS: Basophils # (auto) 0.03 K/uL (0.00-0.20); Basophils % (auto) 0.5 %; Eosinophils # (auto) 0.47 K/uL (0.00-0.50); Eosinophils % (auto) 7.8 %; Hematocrit (blood only) 28.7 % (37.0-47.0); Hemoglobin 9.2 g/dl (12.0-16.0); Immature Granulocytes # (auto) 0.02 K/uL (0.01-0.20); Immature Granulocytes % (auto) 0.3 %; Lymphocytes # (auto) 2.82 K/uL (1.20-3.40); Lymphocytes % (auto) 46.8 %; Mean Corpuscular Hemoglobin 27.5 pg (25.0-34.0); Mean Corpuscular Hgb Conc 32.1 g/dL (32.0-36.0); Mean Corpuscular Volume 85.9 fL (80.0-100.0); Mean Platelet Volume 10.3 fL (9.4-12.4); Monocytes # (auto) 0.66 K/uL (0.11-0.59); Monocytes % (auto) 10.9 %; Neutrophils # (auto) 2.03 K/uL (1.40-6.50); Neutrophils % (auto) 33.7 %; Platelet Count 154 K/uL (130-400); RDW Coefficient of Variation 12.9 % (11.5-14.5); RDW Standard Deviation 40.2 fL (36.4-46.3); Red Blood Count 3.34 M/uL (4.20-5.40); White Blood Count 6.03 K/ul (4.8-10.8)
[2023-06-07 08:47] LABS: Prothrombin Time 11.1 Seconds (9.0-12.0)
[2023-06-07] MEDS: ROSUVASTATIN CALCIUM 20 MG TAB PO SCH (08:55)
[2023-06-07] MEDS: PANTOprazole 40 MG TAB PO SCH (08:56)
[2023-06-07] MEDS: hydroCHLOROthiazide 25 MG TAB PO SCH (08:57)
[2023-06-07] MEDS: FLUTICASONE PROPIONATE NA SPR 16 GM BTL SCH (08:58)
[2023-06-07] MEDS ORDERED: FLUTICASONE PROPIONATE NA SPR 16 GM BTL SCH (09:00)
[2023-06-07 09:04] LABS: Albumin Globulin Ratio 1.1 (0.9-2); Albumin Level 3.2 gm/dl (3.4-5.0); BUN Creatinine Ratio 24.7 (10-20); Bilirubin,Total 0.3 mg/dl (0.2-1.0); Calcium 8.9 mg/dl (8.6-10.3); Creatinine Clr Calc Pharmacy 35.1 ml/min; Est GFR (African American) 61.7 ml/min; Est GFR (Non-African American) 53.3 ml/min; Globulin 2.8 gm/dl (2.5-4.0); Magnesium 1.6 mg/dl (1.7-2.4); Potassium 3.7 mmol/L (3.5-5.1)
--- NOTE | 2023-06-07 15:26 | Fluoroscopy Report ---
FL video swallow HISTORY: Pneumonia. assess for aspiration TECHNIQUE: Video fluoroscopic evaluation of swallowing was performed in the AP and lateral projection s by the speech pathology staff. The patient is fed nectar-thick and thin liquid barium, a barium coa ileana wafer, and barium pudding. FLUOROSCOPY TIME: 1 minute and 49 seconds.. Ka,r: 17.8 mGy COMPARISON STUDY: None. FINDINGS: There is normal hyoid excursion and epiglottic deflection. No significant penetration or as piration identified. Swallowing function is within normal limits. Mild cricopharyngeal dysfunction. M ild esophageal dysmotility. IMPRESSION: 1. No aspiration identified. 2. Please see the speech pathologist report for detailed findings and recommendations. ACT 112: Negative or not required by law. Electronically signed by: Hong Cherry M.D. 06/07/2023 3:25 PM
[2023-06-07] MEDS: cefTRIAXone SODIUM 1,000 MG in DEXTROSE 5 % MINI-B 50 ML IV SCH (17:10)
[2023-06-07] MEDS: AZITHROMYCIN 500 MG in DEXTROSE 5% 250 ML IV SCH (17:52)
[2023-06-07] MEDS: OSELTAMIVIR PHOSPHATE SUSP 30 MG/5 ML UDP PO SCH (20:11)
[2023-06-07] MEDS: ACETAMINOPHEN 325 MG TAB PO PRN (21:57)
--- NOTE | 2023-06-07 22:26 | Hospitalist Progress Note ---
Date of Service June 07, 2023 Assessment & Plan (1) Recurrent UTI: Plan: Assessment: 1. Right lower lobe pneumonia. APpears due to coronoavirus, not COVID 19 IV Rocephin IV azithromycin, speech therapy for swallow eval. The patient denies any choking with eating or drinking. Sputum cultures ordered. SYmptoms appear to be from coronoavirus. LIkely does not need azithromycin, but will continue. Last dose of 500 for 06/07 2. Urinary tract infection with recurrent UTIs. Follows with urology. IV Rocephin. Urine cultures. Blood cultures have been obtained as well. 3. Coronavirus diagnosed 4. Recent hospitalization at [facility] we will try to obtain records. This was last and discharged Sunday. Was supposed to be on oral antibiotic does not know the name of this but was not taking due to nausea. 5. Diabetes mellitus type 2 [id number]. Basal bolus insulin sliding scales been ordered. 6. GERD-continue home medications. 7. Hypertension-continue home medications. 8. Debility the patient is beginning weaker at home per the patient and daughter with consulted PT for evaluation. Plan: As described above. Please refer to orders for further planning. Admission and Anticipated Discharge Date Admission Date: June 06, 2023 Subjective Patient reports still having generalized malaise. Patient does not feel ready for discharge today. Review of Systems Review of Systems: All systems reviewed & are unremarkable except as noted in HPI & below Physical Exam Physical Exam: Patient in no acute distress. HEENT: Normocephalic atraumatic NECK: Supple no rigidity no lymphadenopathy no thyromegaly no carotid bruits no JVD no masses. HEART: Regular rate and rhythm LUNGS: clear. ABDOMEN: Soft nontender Neuro: moves all extremities Results & Data Results & Data Vital Signs (Past 12 Hours) Vital Signs Temp Pulse Resp BP Pulse Ox O2 Del Method 06/07/23 20:04 36.9 C 65 18 108/63 97 Room Air 06/07/23 20:03 36.9 C 70 16 114/56 L 97 Room Air 06/07/23 15:48 36.9 C 67 16 121/66 97 Room Air 06/07/23 10:34 Room Air PG Care Time/CCT Total # of Minutes Spent Total Time Spent with Patient: Total time spent is greater than 50% in coordination of care (as documented) at patient's floor/unit and/or counseling patient: Coding Level of Care Code 57074 SUB INP/OBS CARE MIN Diagnoses Recurrent UTI N39.0
--- NOTE | 2023-06-08 07:18 | Hospitalist Progress Note ---
Date of Service Jun 07, 2023 Assessment & Plan (1) Recurrent UTI: Plan: Assessment: 1. Right lower lobe pneumonia. APpears due to coronoavirus, not COVID 19 IV Rocephin IV azithromycin, speech therapy for swallow eval. The patient denies any choking with eating or drinking. Sputum cultures ordered. SYmptoms appear to be from coronoavirus. LIkely does not need azithromycin, but will continue. Last dose of 500 for 06/07 2. Urinary tract infection with recurrent UTIs. Follows with urology. IV Rocephin. Urine cultures. Blood cultures have been obtained as well. 3. Coronavirus diagnosed 4. Recent hospitalization at [facility] we will try to obtain records. This was last and discharged Sunday. Was supposed to be on oral antibiotic does not know the name of this but was not taking due to nausea. 5. Diabetes mellitus type 2 [id number]. Basal bolus insulin sliding scales been ordered. 6. GERD-continue home medications. 7. Hypertension-continue home medications. 8. Debility the patient is beginning weaker at home per the patient and daughter with consulted PT for evaluation. 9. Acute renal failure: resolved. Creatinine elevated at time of admission Plan: As described above. Anticpate discharge on 06/07 Admission and Anticipated Discharge Date Admission Date: June 06, 2023 Results & Data Results & Data Vital Signs (Past 12 Hours) Vital Signs Temp Pulse Resp BP Pulse Ox O2 Del Method 06/07/23 20:05 Room Air 06/07/23 20:04 36.9 C 65 18 108/63 97 Room Air 06/07/23 20:03 36.9 C 70 16 114/56 L 97 Room Air PG Care Time/CCT Total # of Minutes Spent Total Time Spent with Patient: Total time spent is greater than 50% in coordination of care (as documented) at patient's floor/unit and/or counseling patient: Coding Level of Care Code None Diagnoses Recurrent UTI N39.0
[2023-06-08 07:19] LABS: Hematocrit (blood only) 29.6 % (37.0-47.0); Hemoglobin 9.7 g/dl (12.0-16.0); Mean Corpuscular Hemoglobin 27.5 pg (25.0-34.0); Mean Corpuscular Hgb Conc 32.8 g/dL (32.0-36.0); Mean Corpuscular Volume 83.9 fL (80.0-100.0); Mean Platelet Volume 10.4 fL (9.4-12.4); Platelet Count 167 K/uL (130-400); RDW Coefficient of Variation 12.8 % (11.5-14.5); RDW Standard Deviation 38.6 fL (36.4-46.3); Red Blood Count 3.53 M/uL (4.20-5.40); White Blood Count 5.97 K/ul (4.8-10.8)
[2023-06-08 07:40] LABS: BUN Creatinine Ratio 27.1 (10-20); Calcium 9.5 mg/dl (8.6-10.3); Creatinine Clr Calc Pharmacy 31.8 ml/min; Est GFR (African American) 54.8 ml/min; Est GFR (Non-African American) 47.3 ml/min
--- NOTE | 2023-06-08 09:23 | Hospitalist Progress Note ---
Date of Service June 08, 2023 Assessment & Plan (1) Recurrent UTI: Plan: Right lower lobe pneumonia. APpears due to coronoavirus, not COVID 19 IV Rocephin IV azithromycin, speech therapy for swallow eval. The patient denies any choking with eating or drinking. Sputum cultures ordered. SYmptoms appear to be from coronoavirus. LIkely does not need azithromycin, but will continue. Last dose of 500 for 3/1 Urinary tract infection with recurrent UTIs. Follows with urology. IV Rocephin. Urine cultures, show gr negative. Blood cultures negative at this time Diabetes mellitus type 2 [id number]. Basal bolus insulin sliding scales been ordered. GERD-continue home medications. Hypertension-continue home medications. Debility the patient is beginning weaker at home per the patient and daughter with consulted PT for evaluation. Acute renal failure, CKD3 resolved. Creatinine elevated at time of admission Admission and Anticipated Discharge Date Admission Date: June 06, 2023 Subjective pt is improved, she is awake and alert, she has no focal weakness she does have a cough, non productive Physical Exam Physical Exam: awake and alert, lungs are with some basilar crackles not particularly worse on right cardiac is regular Results & Data Results & Data Vital Signs (Past 12 Hours) Vital Signs Temp Pulse Resp BP Pulse Ox O2 Del Method 06/08/23 08:04 97.9 F 58 L 18 134/68 99 Room Air Laboratory Results review cbc review chemistry PG Care Time/CCT Total # of Minutes Spent Total Time Spent with Patient: Total time spent is greater than 50% in coordination of care (as documented) at patient's floor/unit and/or counseling patient: Coding Level of Care Code 40478 SUB INP/OBS CARE 2/35MIN Diagnoses Recurrent UTI N39.0
[2023-06-09 08:43] LABS: IMP Carbapenemase NOT DETECTED (NotDetected); KPC Carbapenemase NOT DETECTED (NotDetected); NDM Carbapenemase NOT DETECTED (NotDetected); OXA48 Carbapenemase NOT DETECTED (NotDetected); VIM Carbapenemase NOT DETECTED (NotDetected)
--- NOTE | 2023-06-09 16:52 | Hospitalist Progress Note ---
Date of Service June 09, 2023 Assessment & Plan (1) Recurrent UTI: Plan: Right lower lobe pneumonia. Appears due to coronavirus, not COVID 19 IV Rocephin IV azithromycin, speech therapy for swallow eval. The patient denies any choking with eating or drinking. Sputum cultures ordered. Symptoms appear to be from coronavirus. Likely does not need azithromycin, but will continue. Last dose of 500 for 3 Urinary tract infection with recurrent UTIs. Follows with urology. IV Rocephin. Urine cultures, show Enterobacter, will transition to cipro po blood cultures negative at this time Diabetes mellitus type 2 [id number]. Glucose if not been controlled adjustment of sliding scale 22/05/23 GERD-continue home medications. Hypertension-continue home medications. Debility the patient is beginning weaker at home per the patient and daughter with consulted PT for evaluation. Pt does not want to go home and is moving well in room Acute renal failure, CKD3 resolved. Creatinine elevated at time of admission Admission and Anticipated Discharge Date Admission Date: June 06, 2023 Subjective pt is improved, she is awake and alert, she has no focal weakness Patient's cough has lessened her functional abilities have improved patient planning on going home and getting home rehab rather than going to rehab center Physical Exam Physical Exam: awake and alert, lungs continue to be clear now on exam on 06/09/2023 cardiac is regular Results & Data Results & Data Vital Signs (Past 12 Hours) Vital Signs Temp Pulse Resp BP Pulse Ox O2 Del Method 06/09/23 15:30 Room Air 06/09/23 15:01 98.2 F 71 16 118/54 L 97 Room Air 06/09/23 07:54 97.5 F L 60 18 170/57 H 99 Room Air Laboratory Results Reviewed [id number] glucose with elevation adjustment insulin sliding scale PG Care Time/CCT Total # of Minutes Spent Total Time Spent with Patient: Total time spent is greater than 50% in coordination of care (as documented) at patient's floor/unit and/or counseling patient: Coding Level of Care Code 25757 SUB INP/OBS CARE 2/35MIN Diagnoses Recurrent UTI N39.0
[2023-06-09] MEDS: CIPROFLOXACIN 500 MG TAB PO SCH (20:57)
--- NOTE | 2023-06-10 17:01 | Discharge Summary ---
Date of Service June 10, 2023 Admission HPI Per Admitting Provider This is a pleasant 87-year-old female who has had the above symptoms ongoing on and off for approximately a week. He actually was inpatient at [facility] from night last week to Sunday. She was discharged home on oral antibiotic but did not take them because it made her nauseated. Today her symptomatology continues to worsen with rigors and chills and fever. She had a fever of 102 at home. She presented for further evaluation and treatment to the ER. Chest x-ray in the ER showed a right lower lobe pneumonia. Urinalysis was positive for UTI. Bio fire has been ordered and yet to be collected at the time of request for admission we have ordered this to be done stat. Blood cultures were ordered and will be collected CLIFF. Course in the ER she was ordered IV Rocephin IV azithromycin and Tylenol. We will continue the IV Rocephin IV azithromycin sputum cultures urine cultures blood cultures. We will try to obtain records from [facility]. We do anticipate at least 2 overnight stay. Principal Diagnosis thorne virus pneumonia recurrent uti metabolic encephalopathy, resolved Discharge Exam pt is awake and alert lungs are clear Discharge Data Allergies Allergy/AdvReac Type Severity Reaction Status Date / Time No Known Allergies Allergy Unverified 03/20/23 11:14 Consultations 06/06/23 14:18 ED Decision to Admit Stat Ordered Studies 06/07/23 14:15 FL video swallow Routine Hospital Course (1) Recurrent UTI: Right lower lobe pneumonia. Appears due to coronavirus, not COVID 19 IV Rocephin IV azithromycin, speech therapy for swallow eval. The patient denies any choking with eating or drinking. Symptoms appear to be from coronavirus. Urinary tract infection with recurrent UTIs. Follows with urology. IV Rocephin. Urine cultures, show Enterobacter, will transition to levaquin renal dose blood cultures negative at this time Diabetes mellitus type 2 [id number]. daughter wanted a switch to insulin however recommended a diabetic education visit prior to switch will resume home GERD-continue home medications. Hypertension-continue home medications. Debility the patient is beginning weaker at home per the patient and daughter with consulted PT for evaluation. Pt does not want to go home and is moving well in room will have home PT/OT Acute renal failure, CKD3 resolved. Creatinine elevated at time of admission Total Time Total Time Spent Total Time Spent (In Minutes): It required greater than 30 minutes to prepare this patient for discharge. Discharge Plan Discharge Items Patient Disposition: Home - Self-Care Reason For Visit: PNA, UTI Discharge Diagnosis: influenza infection Enterobacter urinary tract infection Activity: Resume your previous activity Activity Comment: eval for home PT/ OT Non-emergency contact: Primary Care Provider Call non-emergency contact if: your symptoms worsen Follow-up/Referrals: Tessa Gomes CRNP [Primary Care Provider] - Diet: Regular Addtl Attending Provider Instructions: please complete your home antibiotics and encourage your primary care to repeat a urine culture to assure you have cleared your infection please have home physical therapy eval and treat to continue treatment for weakness caused by the flu and your urine infection Pending Studies at Discharge: No Stand-Alone Forms: [facility], Smoking Cessation Medications and DC Order Prescriptions: New oseltamivir [Tamiflu] 6 mg/mL Suspension For Reconstitution 30 mg PO BID Qty: 3 0RF levofloxacin 250 mg tablet 250 mg PO DAILY Qty: 8 0RF Rx Instructions: two pills first day then one a day after that Continued amlodipine 5 mg tablet 5 mg PO DAILY Tradjenta 5 mg tablet 5 mg PO DAILY metoprolol succinate 25 mg tablet extended release 24 hr 25 mg PO BID aspirin [Adult Low Dose Aspirin] 81 mg tablet,delayed release (DR/EC) 81 mg PO DAILY nitroglycerin 2.5 mg capsule, extended release 2.5 mg PO BID Rx Instructions: allow nitrate-free interval of approx. 10-12 hrs per 24-hour period pantoprazole 40 mg tablet,delayed release (DR/EC) 40 mg PO DAILY hydrochlorothiazide 25 mg tablet 25 mg PO DAILY isosorbide mononitrate 60 mg tablet extended release 24 hr 60 mg PO DAILY lisinopril 20 mg tablet 20 mg PO DAILY magnesium oxide 400 mg (241.3 mg magnesium) tablet 400 mg PO BID ergocalciferol (vitamin D2) 1,250 mcg (50,000 unit) capsule 1,250 mcg PO WK Rx Instructions: Take 1 capsule by mouth every week for 8 weeks rosuvastatin 20 mg tablet 20 mg PO DAILY Ozempic 0.25 mg or 0.5 mg (2 mg/3 mL) pen injector 0.25 mg SUBCUT WK fluticasone propionate 50 mcg/actuation spray,suspension 50 mcg INTRANASAL DAILY Discharge Orders: Discharge Order (Routine); Ordered 06/10/23 Ordered By: Jak Mojica/Other Patient Handouts: UTIs Admission Data Admit Date/Time: 06/06/23 14:43 Attending Provider: Jak Morillo Admit Provider: Willian Pham Primary Care Provider: Tessa Gomes Other Providers: Willian Pham Other Interventions: Discharge Summary Assessment (RN) Last Done: 06/10/23 10:57 Coding Level of Care Code 79796 INP/OBS DISCH >30 MIN Diagnoses Recurrent UTI N39.0
== END 2023-06-10 13:49 | disposition home or self-care (01) | DRG 193 ==
LOC: ED 11:35 → EDINP 14:43 → SUATTDRO 14:43 → INTOOBSV 14:43 → 3W 16:51

== ENCOUNTER 2023-08-30 10:33 | Observation (INO) ==
--- NOTE | 2023-08-30 12:42 | XRay Report ---
LUMBAR SPINE 5 VIEWS CLINICAL HISTORY: Atraumatic low back pain. Left lower extremity radiculopathy. FINDINGS: 5 views of the lumbar spine are correlated with abdominal CT dated 01/15/2006. The skeletal structures are osteopenic. There is no radiographic evidence of acute fracture. Vertebral body height and alignment are maintained throughout the lumbar spine. Anterior and lateral marginal osteophytes are seen throughout. The transverse and spinous processes appear intact. Facet arthropathy is noted i n the lower lumbar region. There is no radiographic evidence of spondylolysis. Mild disc space narrow ing is seen throughout the lumbar spine, greatest at L4-L5. The visualized bony pelvis appears intact . Sclerotic change is noted in the sacroiliac joints. There is no bowel obstruction. Atherosclerotic calcification is seen in the abdominal aorta. Calcified granulomas are noted in the spleen. IMPRESSION: 1. No acute bony abnormality is seen involving the lumbar spine. 2. Osteopenia and mild spondylotic change as above. Dictated: 08/30/2023 12:16 PM Transcribed: 08/30/2023 12:28 PM Sunny [id number] [email or web address] Electronically signed by: Chris Gordon M.D. 08/30/2023 12:41 PM
[2023-08-30 13:13] LABS: Basophils # (auto) 0.04 K/uL (0.00-0.20); Basophils % (auto) 0.5 %; Eosinophils # (auto) 0.08 K/uL (0.00-0.50); Eosinophils % (auto) 1.1 %; Hematocrit (blood only) 34.1 % (37.0-47.0); Immature Granulocytes # (auto) 0.02 K/uL (0.01-0.20); Immature Granulocytes % (auto) 0.3 %; Lymphocytes # (auto) 2.06 K/uL (1.20-3.40); Lymphocytes % (auto) 27.3 %; Mean Corpuscular Hemoglobin 27.2 pg (25.0-34.0); Mean Corpuscular Hgb Conc 32.3 g/dL (32.0-36.0); Mean Corpuscular Volume 84.2 fL (80.0-100.0); Mean Platelet Volume 10.2 fL (9.4-12.4); Monocytes # (auto) 0.86 K/uL (0.11-0.59); Monocytes % (auto) 11.4 %; Neutrophils # (auto) 4.48 K/uL (1.40-6.50); Neutrophils % (auto) 59.4 %; Platelet Count 199 K/uL (130-400); RDW Coefficient of Variation 13.7 % (11.5-14.5); RDW Standard Deviation 42.5 fL (36.4-46.3); Red Blood Count 4.05 M/uL (4.20-5.40); White Blood Count 7.54 K/ul (4.8-10.8)
[2023-08-30 13:23] LABS: Alanine Aminotransferase 18 U/L (7-52); Albumin Globulin Ratio 1.1 (0.9-2); Albumin Level 3.9 gm/dl (3.4-5.0); Alkaline Phosphatase 63 U/L (34-104); Anion Gap 8 (3-11); Aspartate Aminotransferase 22 U/L (13-39); BUN Creatinine Ratio 21.9 (10-20); Bilirubin,Total 0.5 mg/dl (0.2-1.0); Blood Urea Nitrogen 21 mg/dl (6-23); Carbon Dioxide 26 mmol/L (21-32); Chloride 101 mmol/L (98-107); Creatine Kinase 83 U/L (26-192); Est GFR (African American) 62.5 ml/min; Est GFR (Non-African American) 53.9 ml/min; Globulin 3.5 gm/dl (2.5-4.0); Glucose 249 mg/dl (70-99(Fasting)); Magnesium 1.6 mg/dl (1.7-2.4); Potassium 4.3 mmol/L (3.5-5.1); Sodium 135 mmol/L (136-145); Total Protein 7.4 gm/dl (6.0-8.3)
[2023-08-30 13:28] LABS: Troponin I High Sensitivity 13.1 pg/ml (0-14)
[2023-08-30 13:37] LABS: Thyroid Stimulating Hormone 0.799 uIu/ml (0.300-4.500)
[2023-08-30 15:19] LABS: Appearance Urine Cloudy (Clear); Bacteria Urine Automated 4+ (None Seen); Bilirubin Urine Negative (Negative); Blood Urine 2+ (Negative); Cast Urine Automated 0-2 /lpf (0-2); Color Urine Yellow; Epithelial Cell Urine Auto 0-2 /hpf (0-2); Glucose Urine UA Trace (Negative); Ketones Urine Trace (Negative); Leukocyte Esterase Urine 2+ (Negative); Nitrite Urine Negative (Negative); Protein Urine 3+ (Negative); Specific Gravity Urine 1.017 (1.000-1.030); Urobilinogen Urine Negative (Negative); WBC Urine Automated >50 /hpf (0-5)
--- NOTE | 2023-08-30 15:39 | Electrocardiogram Report ---
Test Reason : Blood Pressure : / mmHG Vent. Rate : 095 BPM Atrial Rate : 095 BPM P-R Int : 188 ms QRS Dur : 068 ms QT Int : 316 ms P-R-T Axes : 071 001 083 degrees QTc Int : 397 ms Normal sinus rhythm Septal infarct , age undetermined Abnormal ECG When compared with ECG of 06-JUN-2023 14:37, Septal infarct is now Present T wave amplitude has increased in Anterior leads T wave inversion now evident in Lateral leads Confirmed by Eduardo Callaway ([id number]) on 08/30/2023 3:39:06 PM Referred By: REFERRED SELF Confirmed By:Eduardo Callaway
--- NOTE | 2023-08-30 16:34 | History & Physical Report ---
Date of Service August 30, 2023 Assessment & Plan (1) UTI (urinary tract infection): Plan: Several days of increased frequency and incontinence UA infected appearing Rocephin added Follow [facility]x for speciation (2) Erythema migrans (Lyme disease): Plan: Patient with a rash on her back suspicious for erythema migrans, she reports that this has been present for at least 3 days and is not sure if she had a tick that bit her. May be too early for Lyme testing to be positive Covered with doxycycline (3) HTN (hypertension): Plan: Continue home meds (4) DM2 (diabetes mellitus, type 2): Plan: Basal bolus insulin, goal BSG [id number], glucose checks ACHS (5) Ambulatory dysfunction: Plan: With acute on chronic weakness likely due to UTI/Lyme, PT/OT Plan DVT prophylaxis: Heparin Disposition: Medical surgical CODE STATUS: Full code Diet: DM 2 History of Present Illness Primary Care Provider: KERRY Bermudez Rula is an 87-year-old female with history of hypertension, DM on insulin, recurrent UTIs who presents with acute on chronic weakness, failed an ambulatory trial in the ER, has a infected appearing UA, and who has a round red rash on her back suspicious for potential Lyme although with initial negative Lyme serology. She is recommended for treatment of UTI, PT/OT. Rula is seen at the bedside. She reports for several days she has felt much more weak than normal, and very shaky in both of her legs. Denies focal weakness, numbness, tingling. She has had increased urinary frequency and incontinence which tends to occur when she has UTIs. Denies fever, chills, sweats. No back or flank pain. She does have a rash on her back but cannot see it. Medical History: Reviewed Medications: Reviewed Surgical History: Reviewed Family history: Reviewed Allergies: Reviewed Social History: Reviewed Code Status: FUll Allergies Allergy/AdvReac Type Severity Reaction Status Date / Time No Known Allergies Allergy Unverified 08/30/23 16:25 Home Medications Medication Instructions Recorded Confirmed Type amlodipine 5 mg tablet 5 mg PO QAM 03/20/23 08/30/23 History aspirin 81 mg tablet,delayed 81 mg PO QAM 03/20/23 08/30/23 History release (Adult Low Dose Aspirin) metoprolol succinate 25 mg 25 mg PO QAM 03/20/23 08/30/23 History tablet,extended release 24 hr pantoprazole 40 mg tablet,delayed 40 mg PO QAM 03/20/23 08/30/23 History release isosorbide mononitrate 60 mg 60 mg PO QAM 06/06/23 08/30/23 History tablet,extended release 24 hr lisinopril 20 mg tablet 20 mg PO QAM 06/06/23 08/30/23 History magnesium oxide 400 mg (241.3 mg 400 mg PO QAM 06/06/23 08/30/23 History magnesium) tablet insulin glargine 100 unit/mL (3 23 unit subcut HS 08/30/23 08/30/23 History mL) subcutaneous pen (Lantus Solostar U-100 Insulin) nitroglycerin 0.4 mg sublingual 0.4 mg sublingual UD PRN Chest Pain 08/30/23 08/30/23 History tablet (Nitrostat) rosuvastatin 40 mg tablet 40 mg PO QAM 08/30/23 08/30/23 History Past Med/Surg History Problem List (Updated 08/30/23 @ 16:40 by Jp Goetz MD) Ambulatory dysfunction DM2 (diabetes mellitus, type 2) HTN (hypertension) Erythema migrans (Lyme disease) UTI (urinary tract infection) Stress incontinence Urgency of urination Incontinent of urine Medical History Pneumonia Recurrent UTI Social History Smoking Status: Never smoker Second Hand Exposure: No; Do You Dip or Chew Tobacco: No; Hx Alcohol Use: No Hx Substance Use: No Preferred Language: Venezuelan Communication Ability: Effective Production Supervisor Trainee Required: No Beliefs That Will Affect Care: Adventist Current Living Situation: Family Feels Safe at Home: Yes Assistive Devices: Denture - Upper and Glasses Physical Exam 2 Physical Exam: General: A&Ox3. NAD. Cooperative. HEENT: Atraumatic, normocephalic. Pulm: CTAB A&P. -wheezes, -rales, -rhonchi. Symmetrical chest rise. No increased work of breathing. No respiratory distress. Cardiac: RRR, -mrg. Radial pulses intact and symmetrical. Abdominal: Nontender, nondistended, soft. BS present. Extremities: Hip flexion, ankle dorsiflexion/plantarflexion, heeler strength are 5/5 but fatigues extremely easily and patient is very tremulous. Sensation is intact in hands and feet to soft touch Skin: Rash as pictured below, has been present for at least 3 days per patient. Suspicious for erythema migrans Results & Data Results & Data Vital Signs (Past 12 Hours) Vital Signs Temp Pulse Pulse Resp BP BP Pulse Ox 08/30/23 15:17 99 H 18 185/85 H 97 08/30/23 14:04 16 193/76 H 98 08/30/23 14:04 92 H 16 98 08/30/23 10:39 36.9 C 97 H 18 159/93 H 97 O2 Del Method 08/30/23 15:17 Room Air 08/30/23 14:04 08/30/23 14:04 Room Air 08/30/23 10:39 Room Air PG Care Time/CCT Total # of Minutes Spent Total Time Spent with Patient: Total time spent is greater than 50% in coordination of care (as documented) at patient's floor/unit and/or counseling patient: Coding Level of Care Code 30086 INT INP/OBS CARE 375MIN Diagnoses UTI (urinary tract infection) N39.0 Erythema migrans (Lyme disease) A69.20 HTN (hypertension) I10 DM2 (diabetes mellitus, type 2) E11.9 Ambulatory dysfunction R26.2
[2023-08-30 16:38] LABS: Adenovirus PCR Not Detected (NotDetected); Bordetella parapertussis PCR Not Detected (NotDetected); Bordetella pertussis PCR Not Detected (NotDetected); Chlamydia pneumoniae PCR Not Detected (NotDetected); Coronavirus 229E PCR Not Detected (NotDetected); Coronavirus CoV-2 (COVID19)PCR Not Detected (NotDetected); Coronavirus HKU1 PCR Not Detected (NotDetected); Coronavirus NL63 PCR Not Detected (NotDetected); Coronavirus OC43PCR Not Detected (NotDetected); Human Metapneumovirus PCR Not Detected (NotDetected); Influenza A PCR Not Detected (NotDetected); Influenza B PCR Not Detected (NotDetected); Mycoplasma pneumoniae PCR Not Detected (NotDetected); Parainfluenza Virus 1 PCR Not Detected (NotDetected); Parainfluenza Virus 2 PCR Not Detected (NotDetected); Parainfluenza Virus 3 PCR Not Detected (NotDetected); Parainfluenza Virus 4 PCR Not Detected (NotDetected); Respiratory Syncytial VirusPCR Not Detected (NotDetected); Rhinovirus/Enterovirus PCR Not Detected (NotDetected)
[2023-08-30] MEDS ORDERED: DEXTROSE 50% 50 ML SYRINGE IV PRN (16:43)
[2023-08-30] MEDS ORDERED: GLUCOSE 10 TAB/TUBE PO PRN (16:43)
[2023-08-30] MEDS ORDERED: GLUCOSE 40% GEL 15 GM TUBE PO PRN (16:43)
[2023-08-30] MEDS ORDERED: PHARMACY GLYCEMIC MGMT CONSULT PRN (16:43)
[2023-08-30] MEDS ORDERED: CARBOHYDRATES FOR HYPOGLYCEMIA PO PRN (16:43)
[2023-08-30] MEDS ORDERED: GLUCAGON FOR INJ 1 MG VIAL SQ PRN (16:43)
--- NOTE | 2023-08-30 16:46 | Emergency Department Note ---
Impression & Plan Generalized weakness, Acute UTI (urinary tract infection), Ambulatory dysfunction ED Provider Note NAME: PHUC LEWIS AGE: 87 SEX: Female INFORMANT: Patient and family ED PROVIDER(S): Carlito Viera MD CHIEF COMPLAINT: Back pain and weakness PLAN: Disposition: Admitted Outpatient prescription management: none Referral: None MEDICAL DECISION MAKING: Patient was evaluated. She was generally weak. She had a round rash noted on her back but this was not a classic bull's-eye appearance. There was concern about Lyme disease. Her CBC and chemistries were unremarkable cardiac troponin negative. X-ray imaging of the back did not reveal any acute findings. Lyme did come back negative. Urinalysis was concerning for infection. Patient did not have any fanny CVA tenderness and had a benign abdominal examination. IV Rocephin after blood cultures was ordered. Patient had an ambulatory trial nursing noted she did poorly. Given the fact that she lives alone, is generally weak and her advanced age further management in the hospital was felt to be appropriate. Family was in agreement as well as patient. Consultation was made with Dr. Jp Goetz of the [facility] service. Patient was evaluated in the ER for further management. Care/management discussed with: product introduction manager Level of care consideration(s): After review of the information above and other included data, I feel the patient requires escalation of care to admission Triage Nursing notes: reviewed and agree them. Vital Signs: reviewed and remarkable for hypertension Additional History obtained from: none Chronic Medical/Social Conditions affecting care: Lives alone, diabetes, hypertension Prior/ Outside/ External records reviewed: none Differential Diagnosis: Infection, dehydration, metabolic abnormality, hypo/hyperglycemia, electrolyte disturbance, anemia, hypoxia, cardiac sources, intracerebral event, toxicologic, neurologic, as well as other pathologies. Diagnostics, independently interpreted by me: ECG: Twelve-lead ECG was normal sinus rhythm at 95 bpm. Septal Q waves. T wave inversion laterally when compared to 06 June 2023 Cardiac Monitoring: Cardiac monitoring ordered by me: The patient was placed on continuous cardiac monitoring and observed. It revealed a normal sinus rhythm at 99 beats per minute without ectopy or evidence of dysrhythmia. Medical decision rules: none Imaging studies: Lumbar spine imaging reveals no evidence of acute fracture. HPI: 87 year old Female arrives for evaluation of generalized weakness and low back pain. Patient notes that she is beginning progressing more weak over the last few days. She denies any specific trauma. She has had some cramping in her left leg but denies any sciatica-like symptoms. Patient has no saddle anesthesia or bowel/bladder incontinence. Patient does note history of chronic low back pain. Prior history of surgery there. Patient does spend some time outdoors but denies any tick bites. She has had a mosquito bite recently on the right medial knee. Family was concerned due to her generalized weakness. She seemed to be more tremulous. Patient feels chilled. Pt denies LOC, headache, fevers, chills, diaphoresis, visual changes, neck pain, chest pain, breathing difficulties, nausea, vomiting, melena, hematochezia, urinary symptoms, numbness, lymphadenopathy, or other complaints. PAST MEDICAL HISTORY: See Below, hypertension PAST SURGICAL HISTORY: See Below, SOCIAL HISTORY: See Below, lives alone HOME MEDICATIONS: See Below ALLERGIES: See Below VITALS: See Below PHYSICAL EXAMINATION: GENERAL: Awake, alert, weak-appearing, in no distress HENT: Normocephalic, atraumatic. Oropharynx unremarkable. EYES: Normal conjunctiva. Sclera non-icteric. NECK: Inspection normal. Non-tender. Supple. No nuchal rigidity. FROM. No masses. RESPIRATORY: Clear to auscultation. No wheezes. No rales. Normal respiratory effort. CARDIAC: Normal rate. Normal rhythm. No murmurs. No rubs. Extremities warm and well perfused. Pulses equal. No JVD. GI: Soft, non-distended. No tenderness to palpation. No rebound or guarding. No masses. RECTAL: Deferred. MUSCULOSKELETAL: Atraumatic. Chest examination reveals no tenderness. The back is symmetrical on inspection without obvious abnormality. There is no CVA tenderness to palpation. No joint edema. LOWER EXTREMITIES: Calves are equal size bilaterally and non-tender. No edema. No discoloration. NEURO: Normal sensorium. No focal sensory or motor deficits noted. Negative straight leg raise. No saddle anesthesia. SKIN: There is a round erythematous patch noted on the left CVA area. No drainage. There is no fluctuance no other rash or jaundice noted. PROCEDURES: none CRITICAL CARE: none OBSERVATION NOTE: none Past Med/Surg History Problem List (Updated 08/30/23 @ 16:46 by Carlito Viera MD) Ambulatory dysfunction (Acute) Acute UTI (urinary tract infection) (Acute) Generalized weakness (Acute) Ambulatory dysfunction DM2 (diabetes mellitus, type 2) HTN (hypertension) Erythema migrans (Lyme disease) UTI (urinary tract infection) Stress incontinence Urgency of urination Incontinent of urine Medical History Pneumonia Recurrent UTI Social History Smoking Status: Never smoker Second Hand Exposure: No; Do You Dip or Chew Tobacco: No; Hx Alcohol Use: No Hx Substance Use: No Preferred Language: Belarusian Communication Ability: Effective Aquatic Habitat Biologist Required: No Beliefs That Will Affect Care: Presybeterian Current Living Situation: Family Feels Safe at Home: Yes Assistive Devices: Denture - Upper and Glasses Allergies Allergies Allergy/AdvReac Type Severity Reaction Status Date / Time No Known Allergies Allergy Unverified 08/30/23 16:25 Home Meds Home Medications Medication Instructions Recorded Confirmed amlodipine 5 mg tablet 5 mg PO QAM 03/20/23 08/30/23 aspirin 81 mg tablet,delayed 81 mg PO QAM 03/20/23 08/30/23 release (Adult Low Dose Aspirin) metoprolol succinate 25 mg 25 mg PO QAM 03/20/23 08/30/23 tablet,extended release 24 hr pantoprazole 40 mg tablet,delayed 40 mg PO QAM 03/20/23 08/30/23 release isosorbide mononitrate 60 mg 60 mg PO QAM 06/06/23 08/30/23 tablet,extended release 24 hr lisinopril 20 mg tablet 20 mg PO QAM 06/06/23 08/30/23 magnesium oxide 400 mg (241.3 mg 400 mg PO QAM 06/06/23 08/30/23 magnesium) tablet insulin glargine 100 unit/mL (3 23 unit subcut HS 08/30/23 08/30/23 mL) subcutaneous pen (Lantus Solostar U-100 Insulin) nitroglycerin 0.4 mg sublingual 0.4 mg sublingual UD PRN Chest Pain 08/30/23 08/30/23 tablet (Nitrostat) rosuvastatin 40 mg tablet 40 mg PO QAM 08/30/23 08/30/23 Results & Data (ED) Vital Signs Vital Signs - 24 hr 08/30/23 10:39 08/30/23 14:04 08/30/23 14:04 Temperature 36.9 C Temperature Source Temporal Artery Scan Pulse Rate 97 H 92 H Pulse Rate [Finger] Respiratory Rate 18 16 16 Respiratory Effort / Characteristics Non-Labored Spontaneous Non-Labored Spontaneous Respiratory Depth Normal Normal Respiratory Pattern Blood Pressure 159/93 H Blood Pressure [Right Arm] 193/76 H Blood Pressure Mean 115 Blood Pressure Mean [Right Arm] 115 Blood Pressure Position Sitting Blood Pressure Position [Right Arm] Pulse Oximetry 97 98 98 Oxygen Delivery Method Room Air Room Air Sepsis Recent Fever Within 48 Hours No Sepsis New/Unexplained Change in Mental Status N/A Sepsis Action Taken by Nursing No Action Required 08/30/23 15:17 Temperature Temperature Source Pulse Rate Pulse Rate [Finger] 99 H Respiratory Rate 18 Respiratory Effort / Characteristics Non-Labored Spontaneous Respiratory Depth Normal Respiratory Pattern Regular Blood Pressure Blood Pressure [Right Arm] 185/85 H Blood Pressure Mean Blood Pressure Mean [Right Arm] 118 Blood Pressure Position Blood Pressure Position [Right Arm] Lying Pulse Oximetry 97 Oxygen Delivery Method Room Air Sepsis Recent Fever Within 48 Hours Sepsis New/Unexplained Change in Mental Status Sepsis Action Taken by Nursing Laboratory Data 08/30/23 12:38 08/30/23 12:38 Lab Results 08/30/23 08/30/23 08/30/23 Range/Units 12:38 14:32 15:14 WBC 7.54 (4.8-10.8) K/ul RBC 4.05 L (4.20-5.40) M/uL Hgb 11.0 L (12.0-16.0) g/dl Hct 34.1 L (37.0-47.0) % MCV 84.2 (80.0-100.0) fL MCH 27.2 (25.0-34.0) pg MCHC 32.3 (32.0-36.0) g/dL RDW Std Deviation 42.5 (36.4-46.3) fL RDW Coeff of Ingris 13.7 (11.5-14.5) % Plt Count 199 (130-400) K/uL MPV 10.2 (9.4-12.4) fL Immature Gran % (Auto) 0.3 % Neut % (Auto) 59.4 % Lymph % (Auto) 27.3 % [place] % (Auto) 11.4 % Eos % (Auto) 1.1 % Baso % (Auto) 0.5 % Neut # (Auto) 4.48 (1.40-6.50) K/uL Lymph # (Auto) 2.06 (1.20-3.40) K/uL [place] # (Auto) 0.86 H (0.11-0.59) K/uL Eos # (Auto) 0.08 (0.00-0.50) K/uL Baso # (Auto) 0.04 (0.00-0.20) K/uL Immature Gran # (Auto) 0.02 (0.01-0.20) K/uL Sodium 135 L (136-145) mmol/L Potassium 4.3 (3.5-5.1) mmol/L Chloride 101 (98-107) mmol/L Carbon Dioxide 26 (21-32) mmol/L Anion Gap 8 (3-11) BUN 21 (6-23) mg/dl Creatinine 0.96 (0.6-1.2) mg/dl Est Cr Clr Drug Dosing Not Reportable Est GFR ( Amer) 62.5 ml/min Est GFR (Non-Af Amer) 53.9 ml/min BUN/Creatinine Ratio 21.9 H (10-20) Glucose 249 H (70-99(Fasting)) mg/dl Calcium 10.0 (8.6-10.3) mg/dl Magnesium 1.6 L (1.7-2.4) mg/dl Total Bilirubin 0.5 (0.2-1.0) mg/dl AST 22 (13-39) U/L ALT 18 (7-52) U/L Alkaline Phosphatase 63 (34-104) U/L Total Creatine Kinase 83 (26-192) U/L Troponin I High Sens 13.1 (0-14) pg/ml Total Protein 7.4 (6.0-8.3) gm/dl Albumin 3.9 (3.4-5.0) gm/dl Globulin 3.5 (2.5-4.0) gm/dl Albumin/Globulin Ratio 1.1 (0.9-2) Procalcitonin 0.11 (0-0.5) ng/ml TSH 0.799 (0.300-4.500) uIu/ml Urine Color Yellow Urine Appearance Cloudy A (Clear) Urine pH 6.0 (4.5-7.5) Ur Specific [place] 1.017 (1.000-1.030) Urine Protein 3+ H (Negative) Urine Glucose (UA) Trace H (Negative) Urine Ketones Trace H (Negative) Urine Blood 2+ H (Negative) Urine Nitrite Negative (Negative) Urine Bilirubin Negative (Negative) Urine Urobilinogen Negative (Negative) Ur Leukocyte Esterase 2+ H (Negative) Urine WBC (Auto) >50 H (0-5) /hpf Urine RBC (Auto) 3-5 H (0-2) /hpf U Hyaline Cast (Auto) 0-2 (0-2) /lpf U Epithel Cells (Auto) 0-2 (0-2) /hpf Urine Bacteria (Auto) 4+ H (None Seen) Urine Yeast Present A (None Prsent) Adenovirus (PCR) Not Detected (NotDetected) B. pertussis DNA (PCR) Not Detected (NotDetected) B.parapertussis DNA PCR Not Detected (NotDetected) Lyme Disease Screen Negative (Negative) C. pneumoniae DNA (PCR) Not Detected (NotDetected) Coronavirus OC43 (PCR) Not Detected (NotDetected) Coronavirus HKU1 (PCR) Not Detected (NotDetected) Coronavirus 229E (PCR) Not Detected (NotDetected) SARS-CoV-2 (PCR) Not Detected (NotDetected) Coronavirus NL63 (PCR) Not Detected (NotDetected) Human Metapneumovir PCR Not Detected (NotDetected) Influenza Type A (PCR) Not Detected (NotDetected) Influenza Type B (PCR) Not Detected (NotDetected) M. pneumoniae (PCR) Not Detected (NotDetected) Parainfluenza 1 (PCR) Not Detected (NotDetected) Parainfluenza 2 (PCR) Not Detected (NotDetected) Parainfluenza 3 (PCR) Not Detected (NotDetected) Parainfluenza 4 (PCR) Not Detected (NotDetected) RSV (PCR) Not Detected (NotDetected) Entero/Rhino (PCR) Not Detected (NotDetected) Imaging Data Radiologist's Impression: Lumbar Spine X-Ray 08/30/23 11:08 LUMBAR SPINE 5 VIEWS CLINICAL HISTORY: Atraumatic low back pain. Left lower extremity radiculopathy. FINDINGS: 5 views of the lumbar spine are correlated with abdominal CT dated 01/15/2006. The skeletal structures are osteopenic. There is no radiographic evidence of acute fracture. Vertebral body height and alignment are maintained throughout the lumbar spine. Anterior and lateral marginal osteophytes are seen throughout. The transverse and spinous processes appear intact. Facet arthropathy is noted in the lower lumbar region. There is no radiographic evidence of spondylolysis. Mild disc space narrowing is seen throughout the lumbar spine, greatest at L4-L5. The visualized bony pelvis appears intact. Sclerotic change is noted in the sacroiliac joints. There is no bowel obstruction. Atherosclerotic calcification is seen in the abdominal aorta. Calcified granulomas are noted in the spleen. IMPRESSION: 1. No acute bony abnormality is seen involving the lumbar spine. 2. Osteopenia and mild spondylotic change as above. Dictated: 08/30/2023 12:16 PM Transcribed: 08/30/2023 12:28 PM Sunny [id number] [email or web address] Electronically signed by: Chris Gordon M.D. 08/30/2023 12:41 PM Discharge Plan Visit Data Chief Complaint: Back Injury/Pain Stated Complaint: BACK PAIN,EXTREME CRAMPING,DIZZINESS ED Provider: Carlito Viera Discharge Problem: Generalized weakness, Acute UTI (urinary tract infection), Ambulatory dysfunction Forms Stand Alone Forms: My [facility] Prescriptions Prescriptions: No Action amlodipine 5 mg tablet 5 mg PO QAM metoprolol succinate 25 mg tablet extended release 24 hr 25 mg PO QAM aspirin [Adult Low Dose Aspirin] 81 mg tablet,delayed release (DR/EC) 81 mg PO QAM pantoprazole 40 mg tablet,delayed release (DR/EC) 40 mg PO QAM isosorbide mononitrate 60 mg tablet extended release 24 hr 60 mg PO QAM lisinopril 20 mg tablet 20 mg PO QAM magnesium oxide 400 mg (241.3 mg magnesium) tablet 400 mg PO QAM insulin glargine [Lantus Solostar U-100 Insulin] 100 unit/mL (3 mL) insulin pen 23 unit SUBCUT HS rosuvastatin 40 mg tablet 40 mg PO QAM nitroglycerin [Nitrostat] 0.4 mg Tablet, Sublingual 0.4 mg sublingual UD PRN (Reason: Chest Pain) Referrals Referrals: Tessa Gomes CRNP [Primary Care Provider] -
[2023-08-30] MEDS: amLODIPine BESYLATE 5 MG TAB PO ONE (16:57)
[2023-08-30] MEDS: METOPROLOL TARTRATE 25 MG TAB PO ONE (16:58)
[2023-08-30] MEDS: cefTRIAXone SODIUM 2,000 MG/50 ML BAG IV STA (16:58)
[2023-08-30] MEDS: Patient's HEIGHT &/or WEIGHT Needed SCH (18:30)
[2023-08-30] MEDS: INSULIN ASPART PER UNIT CHARGE SC SCH (18:30)
[2023-08-30] MEDS ORDERED: NITROGLYCERIN SL 0.4 MG/TAB TAB SL PRN (19:56)
[2023-08-30] MEDS: LANTUS PER UNIT CHARGE SQ SCH (21:29)
[2023-08-30] MEDS: DOXYCYCLINE HYCLATE 100 MG in DEXTROSE 5% MINI-B 100 ML IV SCH (21:30)
[2023-08-30] MEDS: HEPARIN SOD 5,000 UNIT/0.5 ML VIAL SQ SCH (21:31)
[2023-08-30] MEDS: ONDANSETRON INJ 2 MG/ML 2 ML VIAL IV STA (23:27)
[2023-08-31 08:15] LABS: Basophils # (auto) 0.05 K/uL (0.00-0.20); Basophils % (auto) 0.5 %; Eosinophils # (auto) 0.01 K/uL (0.00-0.50); Eosinophils % (auto) 0.1 %; Hematocrit (blood only) 31.1 % (37.0-47.0); Hemoglobin 10.3 g/dl (12.0-16.0); Immature Granulocytes # (auto) 0.04 K/uL (0.01-0.20); Immature Granulocytes % (auto) 0.4 %; Lymphocytes # (auto) 1.68 K/uL (1.20-3.40); Mean Corpuscular Hemoglobin 27.7 pg (25.0-34.0); Mean Corpuscular Hgb Conc 33.1 g/dL (32.0-36.0); Mean Corpuscular Volume 83.6 fL (80.0-100.0); Mean Platelet Volume 10.3 fL (9.4-12.4); Monocytes # (auto) 0.94 K/uL (0.11-0.59); Monocytes % (auto) 9.5 %; Neutrophils # (auto) 7.15 K/uL (1.40-6.50); Neutrophils % (auto) 72.5 %; Platelet Count 169 K/uL (130-400); RDW Coefficient of Variation 13.8 % (11.5-14.5); RDW Standard Deviation 42.4 fL (36.4-46.3); Red Blood Count 3.72 M/uL (4.20-5.40); White Blood Count 9.87 K/ul (4.8-10.8)
[2023-08-31 08:41] LABS: BUN Creatinine Ratio 22.8 (10-20); Calcium 8.9 mg/dl (8.6-10.3); Creatinine Clr Calc Pharmacy 28.2 ml/min; Est GFR (African American) 46.3 ml/min
[2023-08-31 08:55] LABS: Estimated Average Glucose 283 mg/dl; Hemoglobin A1C 11.5 % (4.5-5.6)
[2023-08-31] MEDS ORDERED: LANTUS PER UNIT CHARGE SQ SCH (09:00)
[2023-08-31] MEDS: lisinopril 20 MG TAB PO SCH (09:06)
[2023-08-31] MEDS: PANTOprazole 40 MG TAB PO SCH (09:06)
[2023-08-31] MEDS: amLODIPine BESYLATE 5 MG TAB PO SCH (09:06)
[2023-08-31] MEDS: MAGNESIUM OXIDE 400 MG TAB PO SCH (09:06)
[2023-08-31] MEDS: METOPROLOL SUCC 25MG EXT REL TAB PO SCH (09:06)
[2023-08-31] MEDS: ROSUVASTATIN CALCIUM 20 MG TAB PO SCH (09:06)
[2023-08-31] MEDS: ASPIRIN 81 MG ECTAB PO SCH (09:06)
[2023-08-31] MEDS: ISOSORBIDE MONO EXTENDED REL 60 MG TABCR PO SCH (09:06)
[2023-08-31] MEDS: LANTUS PER UNIT CHARGE SQ SCH (09:11)
--- NOTE | 2023-08-31 09:42 | Pharmacy Report ---
Pharmacy Glycemic Short Note 2 - Date of Service August 31, 2023 - Glycemic Short BSG Results (Last 24 hours): 08/30/23 08/30/23 08/30/23 12:38 17:11 20:41 Glucose 249 H POC Glucose 248 H 215 H 08/31/23 08/31/23 07:33 07:55 Glucose 314 H* POC Glucose 289 H OUTPATIENT ANTIDIABETIC REGIMEN: * Lantus 23 units HS ASSESSMENT: * 87 year old female admitted with chronic weakness/uti, concerns for possible lymes disease. Pharmacy consulted to assist with glycemic management. Based upon fill hx appears outpatient provider has been titrating up insulin the past couple of months. Patient reports no other DM medications, except for Lantus. * Patient received total of 18 units of insulin yesterday, of which 10 units were basal insulin * Fasting BSG elevated 289 mg/dL - insulin dose split as BID dosing yesterday evening. Received 15 units of basal this AM, however BSGs trending upward at lunch - A1c returning this AM ~11.5% therefore anticipate outpatient dosing needing titrating further. Will give extra 10 units of basal this AM to make 25 units total for today. * Plan to tighten novolog to weight based stress of 3 with lunch time check PLAN FOR INPATIENT GLYCEMIC CONTROL: * Hold outpatient oral diabetes medications * Basal insulin * Lantus 25 units this AM * Bolus insulin * NovoLog per scale ACHS or Q6hrs while NPO * Goal Range: Low 110 mg/dL - High 150 mg/dL * Correction Factor: 25 mg/dL/unit * Nutritional / Prandial insulin per carb ratio of 1 unit per 8 grams CHO consumed
[2023-08-31] MEDS: LANTUS PER UNIT CHARGE SQ ONE (12:15)
--- OUTSIDE RECORDS SUMMARY | 2023-08-31 14:01 | External Medical Summary | Continuity of Care Document ---
Author Name Unknown Organization [facility] [address] [place], [place] [id number] Care Team Providers Care Recreation Worker Name Role Phone Tessa Gomes Primary Care Physician [phone] 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 NSTEMIwith subsequent successful PCIand placement of 2drug-eluting stentsto the LAD. 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 2. Dyslipidemia 3. Hypertension 4. Echocardiogram May 21 just prior to [place] showing wall motion abnormalities in the LAD territory with hyperdynamic basal segments, ejection fraction of 60%, normal right ventricular function, no significant valvular disease Phuc's shortness of breath has improved and further out she gets from her influenza infection. At this point she does not feel that she isbeing bothered by dyspnea. She is certainly still weak. I recommended that she have physical therapy but she does not want to proceed. She is considering getting a floor peddlerto helpstrengthen her lower extremities. Her blood pressure is elevated today in the office. She is not having any associated symptoms. Asked her to check blood pressures at homeandsend me a list after a week or 2. She is not usually hypertensive await home pressures before deciding ifshe needs an increase in her antihypertensive regimen. She is a year out from hercoronary artery stentand so has discontinued the clopidogrel and is on aspirin only. She did ask about a possibleprocedurefor incontinence as it is significantly infringing on her quality of life. I am not sure which procedure she is referring to, but we discussed that she would be a moderate to high risk for cardiac complicationsurrounding surgery, especially as weak as she has in the lower extremities. It is really a discussion aboutwhetherthe improvement in her quality of life wouldbe worth the riskof cardiac eventperioperatively. We can discuss furtherif she isconsidering a procedure and we knowwhat that procedure would be. She continues on statin therapy. I will have her get a lipid panel todayas well as CBC and CMP. She was anemic in the hospital. She isscheduledto see Dr. Drake in a month. I offered to push her appointment outanother 3 months but she would prefer to return in the monthso we will see her then. Immunizations Given and Recorded Vaccine Date Status [...] PO, Daily Start Date: 04/28/22 Status: Ordered hydroCHLOROthiazide 25 mg oral tablet take 1 tablet by mouth once daily Start Date: 04/14/22 Status: Ordered Imdur 60 mg oral tablet, extended release Start: 08/16/22 13:48:00 EDT, 1 tab, PO, qAM, Disp# 90 tab, Refills: 3, Pharmacy: [facility] #[id number] Start Date: 08/16/22 Status: Ordered Lantus Solostar Pen 100 units/mL subcutaneous solution Start: 08/01/23 14:18:00 EDT, 23 unit =, subQ, Daily Start Date: 08/01/23 Status: Ordered lisinopril 20 mg oral tablet Start: 11/08/22 11:19:00 EDT, 1 tab, PO, Daily, Disp# 90 tab, Refills: 3, Pharmacy: [facility] #[id number] Start Date: 11/08/22 Status: Ordered magnesium oxide [...] tab, Refills: 1, PRN: Chest Pain, Pharmacy: [facility] [place] Start Date: 05/25/22 Status: Ordered oxybutynin Start: [...] Ordered rosuvastatin 20 mg oral tablet Start: 07/18/23 10:56:00 EDT, 1 tab, PO, Daily, Disp# 90 tab, Refills: 3, Pharmacy: [facility] #[id number] Start Date: 07/18/23 Status: Ordered Tylenol Start: 05/25/22 12:31:00 EST, [...] Status Cl inical Service Informant CAD in [place] artery Discharge Diagnosis 08/01/23 Non-Specified HLD (hyperlipidemia) Discharge Diagnosis 08/01/23 Non-Specified Anemia Discharge Diagnosis 08/01/23 Non-Specified HTN (hypertension) Discharge Diagnosis 08/01/23 Non-Specified Procedures Procedure Date Related Diagnosis Body Site Status Colonoscopy 02/2022 Completed EGD (esophagogastroduodenosc opy) gastric outlet reduction 02/2022 Complet ed Hysterectomy Completed Lumbar Completed Structure of left heel Co mpleted Results Laboratory List Name Date LDL Cholesterol, Direct (LDL DIRECT) 07/09 07/31 Complete Blood Count w Differential (CBC ,DIFFH) 08/01/23 LDL Cholesterol, Direct (LDL DIRECT) 07/09 07/31 Lipid Profile (LIPOPROTEINS) 08/01/23 Most recent to oldest [Reference Range]: 1 2 Non-HDL 156 mg/dL 1 (08/01/23 3:04 PM) LDL, Direct 108 2 (08/01/23 3:07 PM) REQUEST CREDITED 3 *Unknown* (08/01/23 3:04 PM) MPV [9.0-12.2 fL] 10.1 fL (08/01/23 3:04 PM) Immature Gran% 0.3 % (08/01/23 3:04 PM) Neut% 51.0 % (08/01/23 3:04 PM) Lymph% 35.8 % (08/01/23 3:04 PM) [place]% 6.8 % (08/01/23 3:04 PM) Baso% 0.6 % (08/01/23 3:04 PM) Eos% 5.5 % (08/01/23 3:04 PM) Immat Gran, Abs [0-0.4 K/uL] 0.03 K/uL 4 (08/01/23 3:04 PM) Neut, Abs [2.0-7.7 K/uL] 5.90 K/uL (08/01/23 3:04 PM) Lymph, Abs [1.0-3.4 K/uL] 4.15 K/uL *HI* (08/01/23 3:04 PM) [place], Abs [0-1.0 K/uL] 0.79 K/uL (08/01/23 3:04 PM) Baso, Abs [0-0.1 K/uL] 0.07 K/uL (08/01/23 3:04 PM) Eos, Abs [0-0.5 K/uL] 0.64 K/uL *HI* (08/01/23 3:04 PM) Type of Diff: AUTO *Unknown* (08/01/23 3:04 PM) RDW [11.5-14.2 %] 13.9 % (08/01/23 3:04 PM) Chol/HDL 4 (08/01/23 3:04 PM) Chol [125-200 mg/dL] 212 mg/dL *HI* (08/01/23 3:04 PM) Hct [35-44 %] 33.6 % *LOW* (08/01/23 3:04 PM) HDL [>35 mg/dL] 56 mg/dL (08/01/23 3:04 PM) Hgb [11.7-15.0 g/dL] 11.0 g/dL *LOW* (08/01/23 3:04 PM) LDL Chol, Calculated [50-130 mg/dL] NOT CALCULATED mg/dL (08/01/23 3:04 PM) MCH [28-33 pg] 27.4 pg *LOW* (08/01/23 3:04 PM) MCHC [32-36 g/dL] 32.7 g/dL (08/01/23 3:04 PM) MCV [81-96 fL] 83.6 fL (08/01/23 3:04 PM) Plts [150-350 K/uL] 266 K/uL (08/01/23 3:04 PM) RBC [3.90-5.00 M/uL] 4.02 M/uL (08/01/23 3:04 PM) TG [<200 mg/dL] 449 mg/dL *HI* (08/01/23 3:04 PM) WBC [4.0-10.4 K/uL] 11.58 K/uL *HI* (08/01/23 3:04 PM) 1Result Comment: Testing Performed By: Dept of Pathology [facility] [address], [address], [place] [address] 2Result Comment: Reference range: 0 to 129 Unit: mg/dL INTERPRETIVE INFORMATION: LDL Cholesterol, Direct CHD Risk Factors: +1 Age: Men, 45 years and older Women, 55 years and older or premature menopause without estrogen therapy +1 Family history of premature CHD +1 Current smoking +1 Hypertension +1 Diabetes mellitus +1 Low HDL Cholesterol: 39 mg/dL or less -1 High HDL Cholesterol: 60 mg/dL or greater LDL Cholesterol: Therapeutic goal 99 mg/dL or less if CHD is present(Optional 69 mg/dL or less) 129 mg/dL or less if no CHD and two or more risk factors 159 mg/dL or less if no CHD (Circulation 2004; 110:227-39) Access complete set of age- and/or gender-specific reference intervals for this test in the [facility] Test Directory ([employer]). Performed By: [facility] [address] [place] [address] Controls Technician: Cameron Palomino MD, PhD CLIA Number: [id number] 3Result Comment: TEST CANCELLED, REORDERED BY LAB 4Result Comment: Testing Performed By: Dept of Pathology [facility] [address], [facility] [address], [place] [address] Vital Signs Most recent to oldest [Reference Range]: 1 Patient Weight 60 kg (08/01/23 2:29 PM) Heart Rate 70 bpm (08/01/23 2:29 PM) Blood Pressure 170/72mmHg (08/01/23 2:29 PM) BP Location # 1 Right Arm, Other: (08/01/23 2:29 PM) Social History Social History Type Response 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 Trent presents for follow up of post op NSTEMI 05/2022 with subsequent GERARDO x2 to the proximal LAD, htn, and dyslipidemia. She was hospitalized on June 06 at [facility] for recurrent UTI. She also hadright lower lobe pneumonia secondary to influenza A. Her dyspnea has resolved. She is not walking because of her lower extremity weakness. She has refused PT. She has only had chest discomfort once since she was here last and it was relieved with TUMS. Home bps 120-140s systolically. Review of Systems All other systems reviewed and negative except as discussed in the HPI Physical Exam Vitals & Measurements HR:70(Monitored) BP:170/72 SpO2:98% WT:60.000kg(Dosing) WT:60kg Physical Examination General: Alert and oriented, No acute distress. Respiratory: Lungs are clear to auscultation, Respirations are non-labored. Cardiovascular: Normal rate, Regular rhythm, No murmur, mild lower extremity edema, no carotid bruits to auscultation bilaterally. Integumentary: Warm, Dry, Dana Neurologic: Alert, Oriented. Cognition and Speech: Speech clear and coherent. Psychiatric: Cooperative, Appropriate mood & affect. Assessment/Plan Impression: 1. 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 2. Dyslipidemia 3. Hypertension 4. Echocardiogram May 21 just prior to MA showing wall motion abnormalities in the LAD territory with hyperdynamic basal segments, ejection fraction of 60%, normal right ventricular function, nosignificant valvular disease Phuc's shortness of breath has improved and further out she gets from her influenza infection. At this point she does not feel that she isbeing bothered by dyspnea. She is certainly still weak. I recommended that she have physical therapy but she does not want to proceed. She is considering getting a floor peddlerto helpstrengthen her lower extremities. Her blood pressure is elevated today in the office. She is not having any associated symptoms. Asked her to check blood pressures at homeandsend me a list after a week or 2. She is not usually hypertensive await home pressures before deciding ifshe needs an increase in her antihypertensive regimen. She is a year out from [facility] so has discontinued the clopidogrel and is on aspirin only. She did ask about a possibleprocedurefor incontinence as it is significantly infringing on her quality of life. I am not sure which procedure she is referring to, but we discussed that she would be a moderate to high risk for cardiac complicationsurrounding surgery, especially as weak as she has in the lower extremities. It is really a discussion aboutwhetherthe improvement in her quality of life wouldbe worth the riskof cardiac eventperioperatively. We can discuss furtherif she isconsidering a procedure and we knowwhat that procedure would be. She continues on statin therapy. I will have her get a lipid panel todayas well as CBC and CMP.She was anemic in the hospital. She isscheduledto see Dr. Drake in a month. I offered to push her appointment outanother 3 months but she would prefer to return in the monthso we will see her then. Problem List/Past Medical History Ongoing CAD (coronary artery disease) Colon cancer HTN (hypertension) Hyperlipidemia Procedure/Surgical History EGD (esophagogastroduodenoscopy) gastric outlet reduction| Service Date: olonoscopy| Service Date: 02/2022HysterectomyLumbarStructure of left heel Medications acetaminophen(Tylenol), 650 mg= 20.3 mL, PO, q8h, PRN amLODIPine(amLODIPine 5 mg oral tablet) aspirin(aspirin 81 mg oral delayed release tablet), 81 mg= 1 tab, PO, Daily ergocalciferol(Vitamin D2 50,000 intl units (1.25 mg) oral capsule) hydroCHLOROthiazide(hydroCHLOROthiazide 25 mg oral tablet) insulin glargine(Lantus Solostar Pen 100 units/mL subcutaneous solution), 23 unit, subQ, Daily isosorbide mononitrate(Imdur 60 mg oral tablet, extended release), 60 mg= 1 tab, PO, qAM, 3 refills lisinopril(lisinopril 20 mg oral tablet), 20 mg= [...] mg= 1 tab, PO, Daily, 3 refills unlisted medication(RA VITAMIN C 500 MG TABLET) Allergies NKA Social History Smoking Status Never smoked cigarettes Electronic Signature on File CC: KERRY Dorantes Vinton [address] [id number] * Electronically Reviewed/Signed by: KERRY Montano Author Signature Dt/Tm:08/01/2023 05:46 PM [facility] [place] [facility] Patient Care team information Care Team Personnel Name: MD Acuña Tiane Position: Resident - Pathologist Member Role: Lifetime Relationship Address: Address: [address] [place] [id number] [place] Name: Osman Treviño Erika Joy Position: Pharmacist Schedule II Member Role: Pharmacy - Lifetime Name: Bernabe Lopez Position: HIS Supervisor_P Member Role: HIS Lifetime Name: KERRY Gomes Michelle Lyn Position: Referring Member Role: Primary Care Provider Address: Address: [address] [place] [address] [place] Care Team Related Persons Name: KRZYSZTOF YOUNG"
--- NOTE | 2023-08-31 15:28 | Hospitalist Progress Note ---
Date of Service August 31, 2023 Assessment & Plan (1) UTI (urinary tract infection): Plan: Several days of increased frequency and incontinence UA infected appearing on admission Urine culture: Preliminary results show gram-negative bacilli. Continue to follow. Continue ceftriaxone, last dose 09/05/2023. (2) Erythema migrans (Lyme disease): Plan: - Patient with a rash on her back suspicious for erythema migrans on admission. Started on Doxycycline. - She reports that this has been present for at least 3 days and is not sure if she had a tick that bit her. - Lyme disease screen negative on 08/30/2023. - Discontinued Doxycycline 08/31/23. (3) Ambulatory dysfunction: Plan: - With acute on chronic weakness likely due to UTI - OT is recommending acute rehab upon discharge (4) DM2 (diabetes mellitus, type 2): Plan: Basal bolus insulin, goal BSG [id number], glucose checks ACHS - HgbA1c 11.5% on 08/31/2023 - primary special educator consult placed (5) HTN (hypertension): Plan: Chronic. Stable. Continue home meds Plan Consulted perinatal educator Discontinued doxycycline CODE STATUS: Full code Admission and Anticipated Discharge Date Admission Date: August 30, 2023 Subjective Patient seen and evaluated at bedside. She reports that she feels weak. She did work with OT today, and states that she was initially weak when getting out of bed and walking with them, however she started to feel better with the more she walked. She denies any urinary symptoms including dysuria, frequency, urgency. There is no rash on her back during the time my evaluation. Other than her generalized weakness, she has no complaints at this time. Physical Exam Physical Exam: General: No acute distress, nondiaphoretic. Weak. Skin: The skin was without rashes, erythema, edema, or bruising. No rash noted on patient's back. Cardiac: Regular rate and rhythm without murmurs gallops or rubs. Pulm: Clear to auscultation bilaterally without wheezes, rales or rhonchi. No retractions or accessory muscle use. Abdominal: Positive bowel sounds x 4. Soft, nontender, without masses or organomegaly. No guarding or rebound tenderness. Neuro: A&O x3. No focal neurological deficits. Results & Data Results & Data Vital Signs (Past 12 Hours) Vital Signs Temp Pulse Resp BP Pulse Ox O2 Del Method 08/31/23 07:58 36.5 C 64 16 150/69 H 98 Room Air Laboratory Results Reviewed CBC Reviewed BMP Reviewed HgbA1c and glucose readings Diagnostic Findings Reviewed urine culture PG Care Time/CCT Total # of Minutes Spent Total Time Spent with Patient: Total time spent is greater than 50% in coordination of care (as documented) at patient's floor/unit and/or counseling patient: Coding Level of Care Code 65562 SUB INP/OBS CARE 3/50MIN Diagnoses UTI (urinary tract infection) N39.0 Erythema migrans (Lyme disease) A69.20 Ambulatory dysfunction R26.2 DM2 (diabetes mellitus, type 2) E11.9 HTN (hypertension) I10
[2023-08-31] MEDS: cefTRIAXone SODIUM 2,000 MG/50 ML BAG IV SCH (18:20)
[2023-08-31] MEDS: SENNA 8.6 MG TAB PO ONE (22:14)
[2023-08-31] MEDS: POLYETHYLENE (MIRALAX) 17 GM PACK PO SCH (22:15)
[2023-09-01] MEDS: INSULIN ASPART PER UNIT CHARGE SC SCH (00:08)
[2023-09-01] MEDS: ACETAMINOPHEN 325 MG TAB PO PRN (07:45)
[2023-09-01 08:32] LABS: Basophils # (auto) 0.06 K/uL (0.00-0.20); Basophils % (auto) 0.7 %; Eosinophils % (auto) 4.5 %; Hematocrit (blood only) 29.7 % (37.0-47.0); Hemoglobin 9.8 g/dl (12.0-16.0); Immature Granulocytes # (auto) 0.03 K/uL (0.01-0.20); Immature Granulocytes % (auto) 0.3 %; Lymphocytes # (auto) 3.01 K/uL (1.20-3.40); Lymphocytes % (auto) 33.7 %; Mean Corpuscular Hemoglobin 27.2 pg (25.0-34.0); Mean Corpuscular Volume 82.5 fL (80.0-100.0); Mean Platelet Volume 10.7 fL (9.4-12.4); Monocytes # (auto) 1.02 K/uL (0.11-0.59); Monocytes % (auto) 11.4 %; Neutrophils # (auto) 4.42 K/uL (1.40-6.50); Neutrophils % (auto) 49.4 %; Platelet Count 208 K/uL (130-400); RDW Coefficient of Variation 13.8 % (11.5-14.5); RDW Standard Deviation 41.6 fL (36.4-46.3); White Blood Count 8.94 K/ul (4.8-10.8)
[2023-09-01 08:49] LABS: BUN Creatinine Ratio 29.9 (10-20); Calcium 9.2 mg/dl (8.6-10.3); Creatinine Clr Calc Pharmacy 23.6 ml/min; Est GFR (African American) 37.3 ml/min; Est GFR (Non-African American) 32.2 ml/min
[2023-09-01] MEDS: LANTUS PER UNIT CHARGE SQ SCH (09:00)
[2023-09-01] MEDS ORDERED: SENNA 8.6 MG TAB PO PRN (15:55)
[2023-09-01] MEDS: bisacodyL 10 MG SUPP PR STA (16:05)
--- NOTE | 2023-09-01 17:05 | Hospitalist Progress Note ---
Date of Service September 01, 2023 Assessment & Plan (1) UTI (urinary tract infection): Plan: Several days of increased frequency and incontinence UA infected appearing on admission Urine culture revealed pansensitive Klebsiella pneumoniae Continue ceftriaxone, last dose 09/05/2023. - Patient complained of constipation and straining with bowel movements 08/31/23. - Ordered suppository x 1 and updated bowel regimen. - Consider methenamine hippurate for UTI prevention on discharge (2) Erythema migrans (Lyme disease): Plan: - Patient with a rash on her back suspicious for erythema migrans on admission. Started on Doxycycline in ED. - She reports that this has been present for at least 3 days and is not sure if she had a tick that bit her. - Lyme disease screen negative on 08/30/2023. - Discontinued Doxycycline 08/31/23. (3) Ambulatory dysfunction: Plan: - With acute on chronic weakness likely due to UTI - OT is recommending acute rehab upon discharge (4) DM2 (diabetes mellitus, type 2): Plan: Basal bolus insulin, goal BSG [id number], glucose checks ACHS - HgbA1c 11.5% on 08/31/2023 - cosmetology educator consult placed (5) HTN (hypertension): Plan: Chronic. Stable. Continue home meds Plan Updated daughter via phone call Updated bowel regimen CODE STATUS: Full code Admission and Anticipated Discharge Date Admission Date: August 30, 2023 Subjective Patient seen and evaluated at bedside. She reports that she is feeling well today. Specifically, she notes that she feels "less shaky" with ambulation today compared to yesterday. She denies any dysuria, frequency, burning, or other urinary symptoms. Per nursing, patient reports constipation and suppository x 1 was ordered as well as an updated bowel regimen. Patient denies any further complaints at this time. Physical Exam Physical Exam: General: No acute distress, nondiaphoretic. Weak. Skin: The skin was without rashes, erythema, edema, or bruising. No rash noted on patient's back. Cardiac: Regular rate and rhythm without murmurs gallops or rubs. Pulm: Clear to auscultation bilaterally without wheezes, rales or rhonchi. No retractions or accessory muscle use. Abdominal: Positive bowel sounds x 4. Soft, nontender, without masses or organomegaly. No guarding or rebound tenderness. Neuro: A&O x3. No focal neurological deficits. Results & Data Results & Data Vital Signs (Past 12 Hours) Vital Signs Temp Pulse Pulse Resp BP Pulse Ox O2 Del Method 09/01/23 14:18 36.5 C 62 18 116/70 98 Room Air 09/01/23 13:49 69 18 128/70 98 Room Air 09/01/23 09:26 71 98/60 L 09/01/23 08:00 36.6 C 84 20 148/70 H 98 Room Air Laboratory Results Reviewed CBC Reviewed BMP Reviewed urine culture Diagnostic Findings Reviewed lumbar spine x-ray from 08/30/2023 with the patient: FINDINGS: 5 views of the lumbar spine are correlated with abdominal CT dated 01/15/2006. The skeletal structures are osteopenic. There is no radiographic evidence of acute fracture. Vertebral body height and alignment are maintained throughout the lumbar spine. Anterior and lateral marginal osteophytes are seen throughout. The transverse and spinous processes appear intact. Facet arthropathy is noted in the lower lumbar region. There is no radiographic evidence of spondylolysis. Mild disc space narrowing is seen throughout the lumbar spine, greatest at L4-L5. The visualized bony pelvis appears intact. Sclerotic change is noted in the sacroiliac joints. There is no bowel obstruction. Atherosclerotic calcification is seen in the abdominal aorta. Calcified granulomas are noted in the spleen. IMPRESSION: 1. No acute bony abnormality is seen involving the lumbar spine. 2. Osteopenia and mild spondylotic change as above. PG Care Time/CCT Total # of Minutes Spent Total Time Spent with Patient: Total time spent is greater than 50% in coordination of care (as documented) at patient's floor/unit and/or counseling patient: Coding Level of Care Code 96299 SUB INP/OBS CARE 3/50MIN Diagnoses UTI (urinary tract infection) N39.0 Erythema migrans (Lyme disease) A69.20 Ambulatory dysfunction R26.2 DM2 (diabetes mellitus, type 2) E11.9 HTN (hypertension) I10
[2023-09-02 06:25] LABS: Basophils # (auto) 0.04 K/uL (0.00-0.20); Basophils % (auto) 0.4 %; Eosinophils # (auto) 0.19 K/uL (0.00-0.50); Hematocrit (blood only) 29.4 % (37.0-47.0); Hemoglobin 9.6 g/dl (12.0-16.0); Immature Granulocytes # (auto) 0.04 K/uL (0.01-0.20); Immature Granulocytes % (auto) 0.4 %; Lymphocytes # (auto) 3.16 K/uL (1.20-3.40); Lymphocytes % (auto) 33.1 %; Mean Corpuscular Hemoglobin 27.3 pg (25.0-34.0); Mean Corpuscular Hgb Conc 32.7 g/dL (32.0-36.0); Mean Corpuscular Volume 83.5 fL (80.0-100.0); Mean Platelet Volume 10.3 fL (9.4-12.4); Monocytes # (auto) 0.86 K/uL (0.11-0.59); Neutrophils # (auto) 5.25 K/uL (1.40-6.50); Neutrophils % (auto) 55.1 %; Platelet Count 240 K/uL (130-400); RDW Coefficient of Variation 13.6 % (11.5-14.5); RDW Standard Deviation 41.6 fL (36.4-46.3); Red Blood Count 3.52 M/uL (4.20-5.40); White Blood Count 9.54 K/ul (4.8-10.8)
[2023-09-02 06:28] LABS: BUN Creatinine Ratio 32.5 (10-20); Calcium 9.1 mg/dl (8.6-10.3); Creatinine Clr Calc Pharmacy 27.6 ml/min; Est GFR (Non-African American) 38.8 ml/min
[2023-09-02] MEDS: LANTUS PER UNIT CHARGE SQ SCH (08:55)
--- NOTE | 2023-09-02 16:38 | Discharge Summary ---
Discharge Summary Date of Service September 02, 2023 Notes For Next Care Provider Patient admitted for urinary tract infection treated with ceftriaxone while hospitalized, discharged on Augmentin x 5 days. Patient refused acute rehab, home health set up upon discharge. Medication Changes From Visit Started methenamine hippurate for UTI prevention. Admission HPI Per Admitting Provider Rula is an 87-year-old female with history of hypertension, DM on insulin, recurrent UTIs who presents with acute on chronic weakness, failed an ambulatory trial in the ER, has a infected appearing UA, and who has a round red rash on her back suspicious for potential Lyme although with initial negative Lyme serology. She is recommended for treatment of UTI, PT/OT. Rula is seen at the bedside. She reports for several days she has felt much more weak than normal, and very shaky in both of her legs. Denies focal weakness, numbness, tingling. She has had increased urinary frequency and incontinence which tends to occur when she has UTIs. Denies fever, chills, sweats. No back or flank pain. She does have a rash on her back but cannot see it. Medical History: Reviewed Medications: Reviewed Surgical History: Reviewed Family history: Reviewed Allergies: Reviewed Social History: Reviewed Code Status: FUll Principal Dx & Hospital Course #1 = Principal Diagnosis (1) UTI (urinary tract infection): Several days of increased frequency and incontinence prior to admission. UA infected appearing on presentation. Treated with ceftriaxone while hospitalized. Urine culture revealed pansensitive Klebsiella pneumoniae. Discharged on Augmentin x 5 days. Started methenamine hippurate for UTI prevention on discharge. Recommend follow-up with PCP in 1-2 weeks for monitoring & discussion about DM2 regimen (see below #3). (2) Ambulatory dysfunction: - With acute on chronic weakness likely due to UTI - OT is recommending acute rehab upon discharge - Patient refused acute rehab, but was open to home health. - Home health set up on discharge for rehab services. (3) DM2 (diabetes mellitus, type 2): Basal bolus insulin, goal BSG [id number], glucose checks ACHS - HgbA1c 11.5% on 08/31/2023 - art educator consult placed -- Recommend increasing Lantus dose by 15-20% to about 27 units. Defer adjustments to diabetic regimen to PCP follow-up. (4) HTN (hypertension): Chronic. Stable. Continue home meds Plan CODE STATUS: Full code Discharge Exam General: No acute distress, nondiaphoretic. Weak. Skin: The skin was without rashes, erythema, edema, or bruising. No rash noted on patient's back. Cardiac: Regular rate and rhythm without murmurs gallops or rubs. Pulm: Clear to auscultation bilaterally without wheezes, rales or rhonchi. No retractions or accessory muscle use. Abdominal: Positive bowel sounds x 4. Soft, nontender, without masses or organ omegaly. No guarding or rebound tenderness. Neuro: A&O x3. No focal neurological deficits. Updated Medication List Medication Instructions Recorded Confirmed Type amlodipine 5 mg tablet 5 mg PO QAM 03/20/23 08/30/23 History aspirin 81 mg tablet,delayed 81 mg PO QAM 03/20/23 08/30/23 History release (Adult Low Dose Aspirin) metoprolol succinate 25 mg 25 mg PO QAM 03/20/23 08/30/23 History tablet,extended release 24 hr pantoprazole 40 mg tablet,delayed 40 mg PO QAM 03/20/23 08/30/23 History release isosorbide mononitrate 60 mg 60 mg PO QAM 06/06/23 08/30/23 History tablet,extended release 24 hr lisinopril 20 mg tablet 20 mg PO QAM 06/06/23 08/30/23 History magnesium oxide 400 mg (241.3 mg 400 mg PO QAM 06/06/23 08/30/23 History magnesium) tablet insulin glargine 100 unit/mL (3 23 unit subcut HS 08/30/23 08/30/23 History mL) subcutaneous pen (Lantus Solostar U-100 Insulin) nitroglycerin 0.4 mg sublingual 0.4 mg sublingual UD PRN Chest Pain 08/30/23 08/30/23 History tablet (Nitrostat) rosuvastatin 40 mg tablet 40 mg PO QAM 08/30/23 08/30/23 History amoxicillin 500 mg-potassium 1 tab PO BID #10 tabs 09/02/23 Rx clavulanate 125 mg tablet (Augmentin) methenamine hippurate 1 gram tablet 1 g PO BID #60 tabs 09/02/23 Rx Hospital Stay Data Consultations 09/02/23 16:29 Consult [facility] display designer outside Routine Pending Results Patient Have Any Pending Studies at Discharge: No Discharge Instructions Given to Patient (Per Discharging Provider) Mrs. Trent, You were admitted to the hospital due to urinary tract infection (UTI). This is most likely the cause of your acute weakness. You were treated with an IV antibiotic while in the hospital, and you are prescribed an oral antibiotic upon discharge. Additionally, I have prescribed a medication that should hopefully prevent recurrent UTIs. Since you were not interested in going to an acute rehab upon discharge, home health has been set up so you can receive therapy at home. Upon discharge from the hospital: * Please take Augmentin (oral antibiotic) twice daily x 5 days. It is important to finish the full course of this antibiotic even if your symptoms resolve/you feel better. * Please take methenamine hippurate twice daily. This is a medication that should prevent a UTI from occurring. * Home health is set up stay her receive therapy services. They should be calling you sometime this week for scheduling. * Please follow-up with your PCP in 1-2 weeks. Please return to the hospital if you experience any of the following: Fever of 100.4 F or higher, worsening of your UTI symptoms, blood in your urine, lightheadedness, dizziness, shortness of breath, difficulty breathing, chest pain, or passing out. It was a pleasure taking care of you while you were in the hospital, Luiza Henley PA-C Total Time Total Time Spent Total Time Spent (In Minutes): Greater than 30 minutes spent completing this discharge process including direct patient care, medication reconciliation, documentation, review of labs and images, and coordination of care. Coding Level of Care Code 59987 INP/OBS DISCH >30 MIN Diagnoses UTI (urinary tract infection) N39.0 Ambulatory dysfunction R26.2 DM2 (diabetes mellitus, type 2) E11.9 HTN (hypertension) I10
== END 2023-09-02 18:34 | disposition home health service (06) | DRG 690 ==
LOC: ED 10:33 → 3N 10:33 → SUATTDRO 16:42 → 3N 19:24

== ENCOUNTER 2024-05-15 17:16 | Observation (INO) ==
--- NOTE | 2024-05-15 18:02 | Emergency Department Note ---
Impression & Plan Sepsis, COVID-19, Pneumonitis, Acute dehydration, Elevated troponin, Leukocytosis ED Provider Note NAME: PHUC LEWIS AGE: 88 SEX: F : 1935 ARRIVES VIA: Walk-In INFORMANT: Patient, daughter ED PROVIDER(S): Joshua Zaragoza MD CHIEF COMPLAINT: Sore throat, vomiting, COVID MEDICAL DECISION MAKING: Patient presents with the above. IV was established and blood work was obtained. Patient was febrile and tachycardic. Septic protocols initiated. Empiric Rocephin ordered in light of the patient's fever and tachycardia. Procalcitonin pending. Patient was ordered IV fluids and antipyretics. Given the patient's presenting symptoms and lab findings do believe the patient would benefit from admission. Patient with a white count of 14 with a normal hemoglobin. The patient's platelet count is unremarkable. Kidney function unremarkable anion gap of 12. Troponin is 14 no signs of ischemic changes on EKG. Chest x-ray without obvious evidence of pneumonia. I did speak the on- call hospitalist service and the patient was admitted to medicine service. The patient would meet for sepsis criteria based on tachycardia leukocytosis and elevated heart rate; however, patient's lactate was normal and was not hypotensive in light of this the patient did receive 1500 of IV fluids been out of 30 cc/kg bolus. The patient did feel improved upon reassessment. Discussion w/ other healthcare providers: Dr. Perales inpatient medicine service Prior /Outside records reviewed: None Differential diagnosis: Viral syndrome, otitis, pharyngitis, pneumonia, influenza, meningitis, urinary tract infection, sepsis, bacteremia, as well as other pathologies. Diagnostics, as interpreted by me: ECG: Sinus tachycardia, rate of 102, normal intervals, normal axis no ST elevations. Cardiac monitoring: An order was placed for continuous cardiac monitoring. The monitor shows a rate of 105 with tachycardic and regular rhythm. Patient was placed on pulse oximetry Medical decision rules: None Imaging studies: I informally interpreted the patient's chest x-ray without pneumothorax with formal report to follow. HPI: Patient presents due to concern for sore throat. Patient states that she began having some symptoms on Sunday and states that she feels as though she cannot eat or drink very much because of her sore throat. Patient denies any chest pains or shortness of breath. The patient had symptoms throughout the week was seen yesterday at a PCP appointment tested positive for COVID and started on Paxlovid. The patient reportedly vomited when she tried to take this. The patient has felt feverish and chilled but has not taken any medications at home. Prior history of vaccination but no booster. The patient also was hospitalized prior COVID illness at the beginning of the COVID pandemic. Patient currently does not feel nauseated or have any vomiting. The patient does complain of sore throat. No falls or trauma. No reported shortness of breath and the patient has had slight cough but it has been nonproductive. No prior history of lung disease or smoking. No reported leg swelling. The patient has not been eating or drinking very much since the time her symptoms began on Sunday. PAST MEDICAL HISTORY: See Below PAST SURGICAL HISTORY: See Below SOCIAL HISTORY: See Below HOME MEDICATIONS: See Below ALLERGIES: See Below VITALS: See Below PHYSICAL EXAMINATION: GENERAL: NAD, non-toxic. EYE EXAM: Normal conjunctiva. PERRL, no anisocoria and EOM's grossly intact w/o pain. OROPHARYNX: Moist mucus membranes, grossly normal dentition. Posterior pharynx with mild erythema but no tonsillar uvular deviation or swelling. No evidence of ORDER DETAILER. NECK: Trachea midline, no stridor. Supple, no nuchal rigidity, no adenopathy, non-tender. No signs of meningismus. FROM of the neck with good chin to chest and neck extension. LUNGS: Coarse breath sounds at the right base no obvious wheezing. Otherwise clear and the rest of the chest. Normal chest wall mechanics. HEART: Tachycardic and regular, no MRG. ABDOMEN: Abdomen soft, non-tender, no masses, no rebound or guarding. BACK: No CVA TTP. SKIN: No rashes and no bruising. UPPER EXTREMITIES: Upper extremities are grossly normal. LOWER EXTREMITIES: Grossly normal, no edema. NEURO EXAM: A&O x3, cranial nerves II-XII grossly intact, normal speech, moves all 4 extremities. Past Med/Surg History Problem List (Updated 05/15/24 @ 23:26 by Joshua Zaragoza MD) Leukocytosis (Acute) Elevated troponin (Acute) Acute dehydration (Acute) Pneumonitis (Acute) COVID-19 (Acute) Sepsis (Acute) UTI (urinary tract infection) Ambulatory dysfunction (Acute) Acute UTI (urinary tract infection) (Acute) Generalized weakness (Acute) DM2 (diabetes mellitus, type 2) HTN (hypertension) Stress incontinence Urgency of urination Incontinent of urine Medical History Pneumonia Recurrent UTI Social History Smoking Status: Never smoker Second Hand Exposure: No; Do You Dip or Chew Tobacco: No; Hx Alcohol Use: No Hx Substance Use: No Preferred Language: Georgian Communication Ability: Effective Expansion Envelope Maker Hand Required: No Beliefs That Will Affect Care: None Current Living Situation: Family Current Living Situation Comment: With daughter Feels Safe at Home: Yes Safety Concerns: Feels Safe At This Time Assistive Devices: None Allergies Allergies Allergy/AdvReac Type Severity Reaction Status Date / Time No Known Allergies Allergy Unverified 01/31/24 12:36 Home Meds Home Medications Medication Instructions Recorded Confirmed amlodipine 5 mg tablet 5 mg PO QAM 03/20/23 05/15/24 aspirin 81 mg tablet,delayed 81 mg PO QAM 03/20/23 05/15/24 release (Adult Low Dose Aspirin) metoprolol succinate 25 mg 0 mg PO QAM 03/20/23 05/15/24 tablet,extended release 24 hr pantoprazole 40 mg tablet,delayed 40 mg PO QAM 03/20/23 05/15/24 release isosorbide mononitrate 60 mg 60 mg PO QAM 06/06/23 05/15/24 tablet,extended release 24 hr lisinopril 20 mg tablet 20 mg PO QAM 06/06/23 05/15/24 magnesium oxide 400 mg (241.3 mg 400 mg PO QAM 06/06/23 05/15/24 magnesium) tablet insulin glargine 100 unit/mL (3 0 unit subcut HS 08/30/23 05/15/24 mL) subcutaneous pen (Lantus Solostar U-100 Insulin) nitroglycerin 0.4 mg sublingual 0.4 mg sublingual UD PRN Chest Pain 08/30/23 05/15/24 tablet (Nitrostat) rosuvastatin 40 mg tablet 0 mg PO QAM 08/30/23 05/15/24 nirmatrelvir 300 mg (150 mg See Rx Instructions .Route .COMPLEX 05/15/24 05/15/24 x2)-ritonavir 100 mg tablet,dose pack (Paxlovid) vibegron 75 mg tablet (Gemtesa) 0 mg PO DAILY 05/15/24 05/15/24 Results & Data (ED) Vital Signs Vital Signs - 24 hr 05/15/24 17:21 05/15/24 18:56 05/15/24 18:57 Temperature 38.3 C H Temperature Source Oral Pulse Rate 109 H 90 88 Pulse Rate from SpO2 Sensor 88 Respiratory Rate 18 16 Blood Pressure 131/70 188/80 H Blood Pressure Mean 90 116 Pulse Oximetry 97 97 Oxygen Delivery Method Room Air Sepsis Recent Fever Within 48 Hours Yes Sepsis New/Unexplained Change in Mental Status N/A Sepsis Action Taken by Nursing No Action Required 05/15/24 19:30 05/15/24 19:30 05/15/24 20:00 Temperature Temperature Source Pulse Rate 85 Pulse Rate from SpO2 Sensor 84 Respiratory Rate 16 Blood Pressure 173/76 H 122/84 Blood Pressure Mean 131 99 Pulse Oximetry 98 Oxygen Delivery Method Sepsis Recent Fever Within 48 Hours Sepsis New/Unexplained Change in Mental Status Sepsis Action Taken by Nursing 05/15/24 20:00 05/15/24 20:00 Temperature Temperature Source Pulse Rate 82 Pulse Rate from SpO2 Sensor Respiratory Rate 22 Blood Pressure 122/84 Blood Pressure Mean 99 Pulse Oximetry Oxygen Delivery Method Sepsis Recent Fever Within 48 Hours Sepsis New/Unexplained Change in Mental Status Sepsis Action Taken by Retirement Medications Current Medication List: was personally reviewed by me Laboratory Data Attestation: I reviewed the patient's lab results. 05/15/24 17:46 05/15/24 17:46 Lab Results 05/15/24 Range/Units 17:46 WBC 14.12 H (4.8-10.8) K/ul RBC 4.08 L (4.20-5.40) M/uL Hgb 12.3 (12.0-16.0) g/dl Hct 35.2 L (37.0-47.0) % MCV 86.3 (80.0-100.0) fL MCH 30.1 (25.0-34.0) pg MCHC 34.9 (32.0-36.0) g/dL RDW Std Deviation 38.7 (36.4-46.3) fL RDW Coeff of Ingris 12.1 (11.5-14.5) % Plt Count 210 (130-400) K/uL MPV 10.1 (9.4-12.4) fL Immature Gran % (Auto) 0.3 % Neut % (Auto) 62.7 % Lymph % (Auto) 25.0 % [place] % (Auto) 11.5 % Eos % (Auto) 0.1 % Baso % (Auto) 0.4 % Neut # (Auto) 8.85 H (1.40-6.50) K/uL Lymph # (Auto) 3.53 H (1.20-3.40) K/uL [place] # (Auto) 1.63 H (0.11-0.59) K/uL Eos # (Auto) 0.02 (0.00-0.50) K/uL Baso # (Auto) 0.05 (0.00-0.20) K/uL Immature Gran # (Auto) 0.04 (0.01-0.20) K/uL PT 11.0 (9.0-12.0) Seconds INR 1.0 (0.9-1.1) APTT 28 (21-31) Seconds PTT Ratio 1.0 Sodium 136 (136-145) mmol/L Potassium 4.2 (3.5-5.1) mmol/L Chloride 100 (98-107) mmol/L Carbon Dioxide 24 (21-32) mmol/L Anion Gap 12 H (3-11) BUN 20 (6-23) mg/dl Creatinine 0.99 (0.6-1.2) mg/dl Est Cr Clr Drug Dosing Not Reportable eGFR 55.53 BUN/Creatinine Ratio 20.2 H (10-20) Glucose 130 H (70-99(Fasting)) mg/dl Lactate 1.5 (0.4-2.0) mmol/L Calcium 9.9 (8.6-10.3) mg/dl Magnesium 1.8 (1.7-2.4) mg/dl Total Bilirubin 0.9 (0.2-1.0) mg/dl AST 22 (13-39) U/L ALT 12 (7-52) U/L Alkaline Phosphatase 52 (34-104) U/L Troponin I High Sens 14.3 H (0-14) pg/ml Total Protein 7.9 (6.0-8.3) gm/dl Albumin 4.2 (3.4-5.0) gm/dl Globulin 3.7 (2.5-4.0) gm/dl Albumin/Globulin Ratio 1.1 (0.9-2) Procalcitonin 0.12 (0-0.5) ng/ml Administered Medications Discontinued Medications Sodium Chloride (Nss) 1,000 mls @ 999 mls/hr IV .Q1H1M ONE Stop: 05/15/24 19:14 Last Admin: 05/15/24 21:05 Dose: Not Given Documented By: BS Acetaminophen (Ofirmev) 1,000 mg in 100 mls @ 400 mls/hr IV NOW STA Stop: 05/15/24 18:28 Last Infusion: 05/15/24 20:20 Dose: Infused Documented By: Admin: 05/15/24 19:13 Dose: 400 mls/hr Documented By: BS Ceftriaxone Sodium (Rocephin) 2,000 mg in 50 mls @ 100 mls/hr IV NOW STA Stop: 05/15/24 18:45 Last Infusion: 05/15/24 21:40 Dose: Infused Documented By: Admin: 05/15/24 19:13 Dose: 100 mls/hr Documented By: BS Sodium Chloride (Nss) 500 mls @ 999 mls/hr IV .Q31M ONE Stop: 05/15/24 18:46 Last Infusion: 05/15/24 21:05 Dose: Infused Documented By: Admin: 05/15/24 18:53 Dose: 999 mls/hr Documented By: INGRID Ondansetron HCl (Ondansetron Inj 2 Mg/Ml 2 Ml Vial) 4 mg IV NOW STA Stop: 05/15/24 18:15 Last Admin: 05/15/24 19:13 Dose: 4 mg Documented By: INGRID Imaging Data Radiologist's Impression: Chest X-Ray 05/15/24 17:25 EXAM: Radiograph of the Chest 1 View INDICATION: COVID-positive. Sore throat. TECHNIQUE: Frontal view of the chest. COMPARISON: 06/06/2023 FINDINGS: Lungs and pleural spaces: Stable chronic central bronchovascular thickening. There may be a subtle groundglass infiltrate in the left midlung. No pleural effusion or pneumothorax. Heart: Shape and configuration within normal limits allowing for technique. Mediastinum: Normal contour. Bones/joints: No fracture, erosion or dislocation. Soft tissues: No abnormality noted. No radiopaque foreign body noted. Upper abdomen: No abnormality noted. IMPRESSION: Chronic interstitial changes with possible acute groundglass infiltrate left midlung which is typical of COVID pneumonia. ACT 112: Negative or not required by law. Electronically signed by Funmilayo Main 05-15-2024 7:25 PM Discharge Plan Visit Data Chief Complaint: Sore Throat Stated Complaint: SORE THROAT, WEAK, DEHYDRATED +COVID, FEVER ED Provider: Joshua Zaragoza Discharge Problem: Sepsis, COVID-19, Pneumonitis, Acute dehydration, Elevated troponin, Leukocytosis Patient Disposition: Admitted As Inpatient Discharge Instructions Interventions: ED Discharge Assessment Last Done: 05/15/24 21:24 Discharge Problem: Sepsis Qualifiers: Sepsis type: sepsis due to unspecified organism Sepsis acute organ dysfunction status: without acute organ dysfunction Qualified Code(s): A41.9 - Sepsis, unspecified organism Leukocytosis Qualifiers: Leukocytosis type: unspecified Qualified Code(s): D72.829 - Elevated white blood cell count, unspecified
[2024-05-15 18:17] LABS: Basophils # (auto) 0.05 K/uL (0.00-0.20); Basophils % (auto) 0.4 %; Eosinophils # (auto) 0.02 K/uL (0.00-0.50); Eosinophils % (auto) 0.1 %; Hematocrit (blood only) 35.2 % (37.0-47.0); Hemoglobin 12.3 g/dl (12.0-16.0); Immature Granulocytes # (auto) 0.04 K/uL (0.01-0.20); Immature Granulocytes % (auto) 0.3 %; Lymphocytes # (auto) 3.53 K/uL (1.20-3.40); Mean Corpuscular Hemoglobin 30.1 pg (25.0-34.0); Mean Corpuscular Hgb Conc 34.9 g/dL (32.0-36.0); Mean Corpuscular Volume 86.3 fL (80.0-100.0); Mean Platelet Volume 10.1 fL (9.4-12.4); Monocytes # (auto) 1.63 K/uL (0.11-0.59); Monocytes % (auto) 11.5 %; Neutrophils # (auto) 8.85 K/uL (1.40-6.50); Neutrophils % (auto) 62.7 %; Platelet Count 210 K/uL (130-400); RDW Coefficient of Variation 12.1 % (11.5-14.5); RDW Standard Deviation 38.7 fL (36.4-46.3); Red Blood Count 4.08 M/uL (4.20-5.40); White Blood Count 14.12 K/ul (4.8-10.8)
[2024-05-15 18:25] LABS: Alanine Aminotransferase 12 U/L (7-52); Albumin Globulin Ratio 1.1 (0.9-2); Albumin Level 4.2 gm/dl (3.4-5.0); Alkaline Phosphatase 52 U/L (34-104); Anion Gap 12 (3-11); Aspartate Aminotransferase 22 U/L (13-39); BUN Creatinine Ratio 20.2 (10-20); Bilirubin,Total 0.9 mg/dl (0.2-1.0); Blood Urea Nitrogen 20 mg/dl (6-23); Calcium 9.9 mg/dl (8.6-10.3); Carbon Dioxide 24 mmol/L (21-32); Chloride 100 mmol/L (98-107); Globulin 3.7 gm/dl (2.5-4.0); Glucose 130 mg/dl (70-99(Fasting)); Magnesium 1.8 mg/dl (1.7-2.4); Potassium 4.2 mmol/L (3.5-5.1); Sodium 136 mmol/L (136-145); Total Protein 7.9 gm/dl (6.0-8.3)
[2024-05-15 18:29] LABS: Troponin I High Sensitivity 14.3 pg/ml (0-14)
[2024-05-15 18:32] LABS: Partial Thromboplastin Time 28 Seconds (21-31)
[2024-05-15] MEDS: SODIUM CHLORIDE 0.9% 500 ML IV ONE (18:53)
[2024-05-15] MEDS: ACETAMINOPHEN 1,000 MG/100 ML VIAL IV STA (19:13)
[2024-05-15] MEDS: ONDANSETRON INJ 2 MG/ML 2 ML VIAL IV STA (19:13)
[2024-05-15] MEDS: cefTRIAXone SODIUM 2,000 MG/50 ML BAG IV STA (19:13)
--- NOTE | 2024-05-15 19:25 | XRay Report ---
EXAM: Radiograph of the Chest 1 View INDICATION: COVID-positive. Sore throat. TECHNIQUE: Frontal view of the chest. COMPARISON: 06/06/2023 FINDINGS: Lungs and pleural spaces: Stable chronic central bronchovascular thickening. There may be a subtle groundglass infiltrate in the left midlung. No pleural effusion or pneumothorax. Heart: Shape and configuration within normal limits allowing for technique. Mediastinum: Normal contour. Bones/joints: No fracture, erosion or dislocation. Soft tissues: No abnormality noted. No radiopaque foreign body noted. Upper abdomen: No abnormality noted. IMPRESSION: Chronic interstitial changes with possible acute groundglass infiltrate left midlung which is typical of COVID pneumonia. ACT 112: Negative or not required by law. Electronically signed by Funmilayo Main 05-15-2024 7:25 PM
--- OUTSIDE RECORDS SUMMARY | 2024-05-15 20:01 | External Medical Summary | Continuity of Care Document ---
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 NSTEMIwith subsequent successful PCIand placement of 2drug-eluting stentsto the LAD.(05/2022) 1b. Cath 05/2022 at [facility]: LM: 40% lesion in the ostial portion of the Ostial LMCA. IVUS was performed on the Ostial LMCA. IVUS measurements: MLA = 6.5 mm. The iFR was 0.91. LAD: Proximal LAD is medium in size and severely diseased. There is a 95% 12 mm long, culprit lesion. The Mid LAD is medium in size and not diseased. The Distal LAD is small in size and mildly diseased. The 1st Diagonal is small in size and not diseased. The 2nd Diagonal is medium in size and mildly diseased. Circumflex: The circumflex coronary artery arises from the left main, is a small caliber vessel and severely diseased. The Proximal Circumflex is small in size and severely diseased. There is an 80% lesion in the Proximal Circumflex. RCA:No significant disease 2. Dyslipidemia 3. Hypertension 4a. Echo 05/2023 NML lV fxn and NO RWMA LVEF 65-70% 4b. Echocardiogram May2022 just prior to MD showing wall motion abnormalities in the LAD territory with hyperdynamic basal segments, ejection fraction of 60%, normal right ventricular function, no significant valvular disease 5. Colon CA s/p Right Hemicolectomy 05/2022 6. Iron deficiency anemia Phuc is not having concerning anginal symptoms. She continues on appropriate CAD medications withaspirin, lisinopril, and statin. She has not needed to take any nitro. Her blood pressure is little elevated today. She will send me a list of her blood pressures from home. She notes that she had recent lab work with her PCP which I will request and in particularif she has not had a lipid panel in a whilewe will order one. She will wear a heart monitor to further evaluate her racing heartbeat. She is consideringa surgery forfluid in her in her ear although she was unsure what the surgery was. She asked if she wouldbe too risky of a candidate. I discussed with her that her age and comorbidities do put herinaat least moderate risk for cardiac complication surrounding a surgery butrisk stratificationalso includeswhat kind of surgery she is having. She can accomplish 4 METS and ascend a flight of stairs without her shortness of breath or chest pain. If she were to proceed with surgery I do not think she would need further cardiacworkup. She will return to the clinic in 6 months Immunizations Given and Recorded Vaccine Date [...] mg oral delayed release tablet Start: 04/28/22 2:40:00 PM EST, 1 tab, PO, Daily Start Date: 04/28/22 Status: Ordered Feosol 200 mg (65 mg elemental iron) oral tablet Start: 09/07/23 11:53:00 AM EDT, 1 tab, PO, Daily, Disp# 60 tab, Refills: 6, [facility]acy: [facility] #[id number] Start Date: 09/07/23 Status: Ordered Imdur 60 mg oral tablet, extended release Start: 12/13/23 1:31:00 PM EDT, 1 tab, PO, qAM, Disp# 90 tab, Refills: 3, Pharmacy: [facility] #[id number] Start Date: 12/13/23 Status: Ordered lisinopril 20 mg oral tablet Start: 02/13/24 1:09:00 PM EST, 1 tab, PO, Daily, Disp# 90 tab, Refills: 3, Pharmacy: [facility] #[id number] Start Date: 02/13/24 Status: Ordered magnesium oxide 400 mg (241.3 mg elemental magnesium) oral tablet Start: 07/03/22 10:10:00 AM EDT, 2 tab, PO, Daily Start Date: 07/03/22 Status: Ordered methenamine hippurate 1 g oral tablet Start: 09/07/23 11:29:00 AM EDT, 1 tab, PO, bid Start Date: 09/07/23 Status: Ordered Metoprolol Tartrate 25 mg oral tablet Start: 12/28/23 4:25:00 PM EDT, 1 tab, PO, bid, Disp# 180 tab, Refills: 3, take 1 tablet by mouth twice a day, Pharmacy: [facility] #[id number] Start Date: 12/28/23 Status: Ordered multivitamin Start: 09/07/23 11:31:00 AM EDT, 1 tab, PO, Daily Start Date: 09/07/23 Status: Ordered nitroglycerin 0.4 mg sublingual tablet Start: 05/25/22 3:49:00 PM EST, 1 tab, SL, q5min, Disp# 20 tab, Refills: 1, PRN: Chest Pain, Pharmacy: [facility] [place] Start Date: 05/25/22 Status: Ordered Ozempic (1 mg dose) 4 mg/3 mL subQ pen STARING ON WEEK 7: inject 1 milligram subcutaneously every week ON TUESDAYS Start Date: 02/13/24 Status: Ordered pantoprazole 40 mg oral delayed release tablet take 1 tablet by mouth daily 15-30 MINUTE BEFORE BEDTIME Start Date: 04/14/22 Status: Ordered Probiotic Formula Start: 09/07/23 11:32:00 AM EDT Start Date: 09/07/23 Status: Ordered rosuvastatin 40 mg oral tablet Start: 08/10/23 4:19:00 PM EDT, 1 tab, PO, qhs, Disp# 30 tab, Refills: 3, Pharmacy: [facility] #[id number] Start Date: 08/10/23 Status: Ordered Tylenol Start: 05/25/22 12:31:00 PM EST, 650 mg =, PO, q8h, PRN: fever/mild pain (1-3) Start Date: 05/25/22 Status: Ordered Mental Status 02/13/24 Barriers to Learning one year None evide nt Mandatory Health Literacy Documentation Yes Health Literacy Communication Barriers N ever Primary Language Mongolian Problem List Condition Confirmation Course Effective Dates Status H ealth Status Informant CAD (coronary artery disease) Confirmed Active Hyperlipidemia Confirmed Active HTN (hypertension) Confirmed Active Colon cancer Confirmed Active Diagnosis Diagnosis Type Effective Dates Health Status Cl inical Service Informant Racing heart beat Discharge Diagnosis 02/13/24 Non-Specified CAD in platinum artery Discharge Diagnosis 02/13/24 Non-Specified HTN (hypertension) Discharge Diagnosis 02/13/24 Non-Specified HLD (hyperlipidemia) Discharge Diagnosis 02/13/24 Non-Specified Procedures Procedure Date Related Diagnosis Body Site Status Colonoscopy 02/2022 Completed EGD (esophagogastroduodenosc opy) gastric outlet reduction 02/2022 Complet ed Hysterectomy Completed Lumbar Completed Structure of left heel Co mpleted Vital Signs Most recent to oldest [Reference Range]: 1 Patient Weight 54.5 kg (02/13/24 12:51 PM) Heart Rate 80 bpm (02/13/24 12:51 PM) Blood Pressure 150/52mmHg (02/13/24 12:51 PM) BP Location # 1 Left Arm (02/13/24 12:51 PM) Social History Social History Type Response Smoking Status Never smoked cigaret homero Sex Sex Representation Female (finding) Cardiology Outpatient Note * KERRY Davis Sarah A: MODIFY, PERFORM, MODIFY Event Display: Cardiology Outpt Note Authored Date: [id number] Primary Care Provider KERRY Gomes Michelle Lyn Chief Complaint 6 mon f/u cad thn chol colon ca iron def History of Present Illness Ms. Trent presents for follow up of post op NSTEMI 05/2022 with subsequent GERARDO x2 to the proximal LAD, htn, and dyslipidemia. She is not having anyshortness of breath or chest pain. She can walk around a grocery store with a cane. She started Ozempic and has lost 20 pounds and notes that she would like tostop losingweight at this point. Her blood pressures at home arefrequently in the 140s systolically she thinks but does not remember exactly. She does check regularly though but did not bring her list with her. She can ascend a flight of stairs without any shortness of breath or chest pain. She has had 2 episodes of racing heartbeat that awoke her in the middle of the night. Review of Systems All other systems reviewed and negative except as discussed in the HPI Physical Exam Vitals & Measurements HR:80(Monitored) BP:150/52 SpO2:98% WT:54.500kg(Dosing) WT:54.5kg Physical Examination General: Alert and oriented, No acute distress. Neck: No jugular venous distention. Respiratory: Lungs are clear to auscultation, Respirations are non-labored. Cardiovascular: Normal rate, Regular rhythm, No murmur, No edema. Integumentary: Warm, Dry, [place] Neurologic: Alert, Oriented. Cognition and Speech: Speech clear and coherent. Psychiatric: Cooperative, Appropriate mood & affect. Assessment/Plan Impression: 1. NSTEMIwith subsequent successful PCIand placement of 2drug-eluting stentsto the LAD.(05/2022) 1b. Cath 05/2022 at [facility]: LM: 40% lesion in the ostial portion of the Ostial LMCA. IVUS was performed on the Ostial LMCA. IVUS measurements: MLA = 6.5 mm. The iFR was 0.91. LAD: Proximal LAD is medium in size and severely diseased. There is a 95% 12 mm long, culprit lesion. The Mid LAD is medium in size and not diseased. The Distal LAD is small in size and mildly diseased. The 1st Diagonal is small in size and not diseased. The 2nd Diagonal is medium in size and mildly diseased. Circumflex: The circumflex coronary artery arises from the left main, is a small caliber vessel andseverely diseased. The Proximal Circumflex is small in size and severely diseased. There is an 80% lesion in the Proximal Circumflex. RCA:No significant disease 2. Dyslipidemia 3. Hypertension 4a. Echo 05/2023 NML lV fxn and NO RWMA LVEF 65-70% 4b. Echocardiogram May2022 just prior to MD showing wall motion abnormalities in the LAD territory with hyperdynamic basal segments, ejection fraction of 60%, normal right ventricular function, no significant valvular disease 5. Colon CA s/p Right Hemicolectomy 05/2022 6. Iron deficiency anemia Phuc is not having concerning anginal symptoms. She continues on appropriate CAD medications withaspirin, lisinopril, and statin. She has not needed to take any nitro. Her blood pressure is little elevated today. She will send me a list of her blood pressures from home. She notes that she had recent lab work with her PCP which I will request and in particularif she has not had a lipid panel in a whilewe will order one. She will wear a heart monitor to further evaluate her racing heartbeat. She is consideringa surgery forfluid in her in her ear although she was unsure what the surgerywas. She asked if she wouldbe too risky of a candidate. I discussed with her that her age andcomorbidities do put herinaat least moderate risk for cardiac complication surrounding a surge ry butrisk stratificationalso includeswhat kind of surgery she is having. She can accomplish 4 METS and ascend a flight of stairs without her shortness of breath or chest pain. If she were to proceed with surgery I do not think she would need further cardiacworkup. She will return to the clinic in 6 months Problem List/Past Medical History Ongoing CAD (coronary artery disease) Colon cancer HTN (hypertension) Hyperlipidemia Procedure/Surgical History EGD (esophagogastroduodenoscopy) gastric outlet reduction| Service Date: olonoscopy| Service Date: 02/2022HysterectomyLumbarStructure of left heel Medications acetaminophen(Tylenol), 650 mg= 20.3 mL, PO, q8h, PRN amLODIPine(amLODIPine 5 mg oral tablet) aspirin(aspirin 81 mg oral delayed release tablet), 81 mg= 1 tab, PO, Daily bifidobacterium-lactobacillus(Probiotic Formula) ferrous sulfate(Feosol 200 mg (65 mg elemental iron) oral tablet), 200 mg= 1 tab, PO, Daily, 6 refills isosorbide mononitrate(Imdur 60 mg oral tablet, extended release), 60 mg= 1 tab, PO, qAM, 3 refills lisinopril(lisinopril 20 mg oral tablet), 20 mg= 1 tab, PO, Daily, 3 refills magnesium oxide(magnesium oxide 400 mg (241.3 mg elemental magnesium) oral tablet), 800 mg= 2 tab, PO, Daily methenamine(methenamine hippurate 1 g oral tablet), 1 g= 1 tab, PO, bid metoprolol(Metoprolol Tartrate 25 mg oral tablet), 25 mg= 1 tab, PO, bid, 3 refills multivitamin, 1 tab, PO, Daily nitroglycerin(nitroglycerin 0.4 mg sublingual tablet), 0.4 mg= 1 tab, SL, q5min, PRN, 1 refills pantoprazole(pantoprazole 40 mg oral delayed release tablet) rosuvastatin(rosuvastatin 40 mg oral tablet), 40 mg= 1 tab, PO, qhs, 3 refills semaglutide(Ozempic (1 mg dose) 4 mg/3 mL subQ pen) Allergies NKA Social History Smoking Status Never smoked cigarettes Electronic Signature on File CC: KERRY Dorantes [place] [id number] * Electronically Reviewed/Signed by: KERRY Montano Author Signature Dt/Tm:02/13/2024 04:24 PM [facility] Electronically Reviewed/Signed by: KERRY Montano Cosigner Signature Dt/Tm: 02/13/2024 04:25 PM [facility] SAG Patient Care team information Care Team Personnel Name: Osman Treviño Erika Joy Position: Pharmacist Member Role: Pharmacy - Lifetime Name: Bernabe Lopez Position: HIS Supervisor_P Member Role: HIS Lifetime Name: KERRY Gomes Michelle Lyn Position: Referring Member Role: Primary Care Provider Address: [place] [address] [place] Care Team Related Persons Name: KRZYSZTOF YOUNG"
--- OUTSIDE RECORDS SUMMARY | 2024-05-15 20:01 | External Medical Summary | Continuity of Care Document ---
Author Name Unknown Organization [place] [address] [address] Address [address] [place] [id number] Care Team Providers Care Pressing Machine Tender Name Role Phone Tessa Gomes Primary Care Physician [phone] [id number] Date[facility]s): 02/13/24 - 02/13/[address], [address] [place] [address] [phone] Discharge Disposition: Home or Self Care Attending Physician: KERRY Davis Sarah A Referring Physician: KERRY Davis Sarah A Allergies, Adverse [...] 60 tab, Refills: 6, Pharmacy: [facility] #[id number] Start Date: 09/07/23 Status: Ordered Imdur 60 mg oral tablet, extended release Start: 12/13/23 1:31:00 PM EDT, 1 tab, PO, qAM, Disp# 90 tab, Refills: 3, Pharmacy: [facility] #[id number] Start Date: 12/13/23 Status: Ordered lisinopril 20 mg oral tablet Start: 02/13/24 1:09:00 PM EST, 1 tab, PO, Daily, Disp# 90 tab, Refills: 3, Pharmacy: [facility] #[id number] Start Date: 02/13/24 Status: Ordered magnesium oxide [...] tablet by mouth twice a day, [id number] Start Date: 12/28/23 Status: Ordered multivitamin Start: 09/07/23 11:31:00 AM EDT, 1 tab, PO, Daily Start Date: 09/07/23 Status: Ordered nitroglycerin 0.4 mg sublingual tablet Start: 05/25/22 3:49:00 PM EST, 1 tab, SL, q5min, Disp# 20 tab, Refills: 1, PRN: Chest Pain, Pharmacy: [facility] [place] Start Date: 05/25/22 Status: Ordered Ozempic (1 [...] qhs, Disp# 30 tab, Refills: 3, Pharmacy: [facility] #[id number] Start Date: 08/10/23 Status: Ordered Tylenol Start: 05/25/22 12:31:00 PM EST, 650 mg =, PO, q8h, PRN: fever/mild pain (1-3) Start Date: 05/25/22 Status: Ordered Problem List Condition Confirmation Course Effective Dates Status H ealth Status Informant CAD (coronary artery disease) Confirmed Active Hyperlipidemia Confirmed Active HTN (hypertension) Confirmed Active Colon cancer Confirmed Active Procedures Procedure Date Related Diagnosis Body Site Status Colonoscopy 02/2022 Completed EGD (esophagogastroduodenosc opy) gastric outlet reduction 02/2022 Complet ed Hysterectomy Completed Lumbar Completed Structure of left heel Co mpleted Social History Social History Type Response Smoking Status Never smoked cigaret homero Sex Sex Representation Female (finding) Patient Care team information Care Team Personnel Name: Osman Terviño Erika Joy Position: Pharmacist Member Role: Pharmacy - Lifetime Name: Bernabe Lopez Position: HIS Supervisor_P Member Role: HIS Lifetime Name: KERRY Gomes Michelle Lyn Position: Referring Member Role: Primary Care Provider Address: [address] [place] [address] [place] Care Team Related Persons Name: KRZYSZTOF YOUNG
--- OUTSIDE RECORDS SUMMARY | 2024-05-15 20:01 | External Medical Summary | Continuity of Care Document ---
Author Name Unknown Organization [address] [id number] Care Team Providers Care Power Plant Electrician Name Role Phone Tessa Gomes Primary Care Physician [phone] Encounter [facility] [id number] Date(s): 05/09/24 - 05/09/[address] [address] [phone] Encounter Diagnosis Colon cancer(Discharge Diagnosis) - 05/09/24 Discharge Disposition: Home or Self Care Attending Physician: MD Cobb Jeffrey S Referring Physician: MD Cobb Jeffrey S Allergies, Adverse Reactions, Alerts No Known Allergies [...] 60 tab, Refills: 6, Pharmacy: [facility] #[id number] Start Date: 09/07/23 Status: Ordered Imdur 60 mg oral tablet, extended release Start: 12/13/23 1:31:00 PM EDT, 1 tab, PO, qAM, Disp# 90 tab, Refills: 3, Pharmacy: [facility] #[id number] Start Date: 12/13/23 Status: Ordered lisinopril 20 mg oral tablet Start: 02/13/24 1:09:00 PM EST, 1 tab, PO, Daily, Disp# 90 tab, Refills: 3, Pharmacy: [facility] #[id number] Start Date: 02/13/24 Status: Ordered magnesium oxide [...] mouth twice a day, Pharmacy: [facility] #[id number] Start Date: 12/28/23 Status: Ordered multivitamin Start: 09/07/23 11:31:00 AM EDT, 1 tab, PO, Daily Start Date: 09/07/23 Status: Ordered nitroglycerin 0.4 mg sublingual tablet Start: 05/25/22 3:49:00 PM EST, 1 tab, SL, q5min, Disp# 20 tab, Refills: 1, PRN: Chest Pain, Pharmacy: [facility] [place] Start Date: 05/25/22 Status: Ordered Ozempic (1 [...] 30 tab, Refills: 3, Pharmacy: [facility] #[id number] Start Date: 08/10/23 Status: Ordered Tylenol Start: 05/25/22 12:31:00 PM EST, 650 mg =, PO, q8h, PRN: fever/mild pain (1-3) Start Date: 05/25/22 Status: Ordered Mental Status 05/09/24 Barriers to Learning one year None evide nt Mandatory Health Literacy Documentation Yes Health Literacy Communication Barriers N ever Primary Language Georgian Problem List Condition Confirmation Course Effective Dates Status H ealth Status Informant CAD (coronary artery disease) Confirmed Active Hyperlipidemia Confirmed Active HTN (hypertension) Confirmed Active Colon cancer Confirmed Active Diagnosis Diagnosis Type Effective Dates Health Status Cl inical Service Informant Colon cancer Discharge Diagnosis 05/09/24 Procedures Procedure Date Related Diagnosis Body Site Status Colonoscopy 02/2022 Completed EGD (esophagogastroduodenosc opy) gastric outlet reduction 02/2022 Complet ed Hysterectomy Completed Lumbar Completed Structure of left heel Co mpleted Vital Signs Most recent to oldest [Reference Range]: 1 Patient Weight 53.6 kg (05/09/24 11:31 AM) Social History Social History Type Response Smoking Status Never smoked cigaret homero Sex Sex Representation Female (finding) Patient Care team information Care Team Personnel Name: Osman Treviño Erika Joy Position: Pharmacist Member Role: Pharmacy - Lifetime Name: Bernabe Lopez Position: HIS Supervisor_P Member Role: HIS Lifetime Name: KERRY Gomes Michelle Lyn Position: Referring Member Role: Primary Care Provider Address: [address] [place] [address] [place] Care Team Related Persons Name: KRZYSZTOF YOUNG
--- NOTE | 2024-05-15 20:02 | History & Physical Report ---
Date of Service May 15, 2024 Assessment & Plan (1) COVID-19: Plan: 88yo female with history of HTN and DM presenting with several days of generalized illness - fever, chills, weakness and decreased oral intake. Severe sore throat with inability to swallow pills over the last few days. Patient is not hypoxic - on room air with adequate oxygenation -Admit to medical with telemetry -Maintain isolation precautions -Tylenol, Zofran, Robitussin PRN -Lovenox for DVT prophylaxis -Will give Dexamethasone 6mg IV x 1 dose now for patient's severe sore throat. As she is not hypoxic she does not require continued Dexamethasone for her Covid-19. -Patient received Ceftriaxone and Azithromycin in the ER. Given normal procalcitonin, CXR with findings typical of Covid-19 PNA will hold further antibiotics. -PT/OT evaluation for generalized weakness (2) DM2 (diabetes mellitus, type 2): Plan: DM -elevated HgbA1C at 11.5 on 08/31/23. Patient reports she is currently not taking insulin but is on Ozempic -blood lzeev=264 on admission labs -patient has not been able to tolerate much PO for several days -ISS, goal blood sugar 110 - 140 (3) HTN (hypertension): Plan: Blood pressure mildly elevated. Patient reports she has not been able to take her medications for several dasy -Continue Amlodipine 5mg po qAM -Continue Isosorbide mononitrate 60mg po qAM -Continue Lisinopril 20mg po qPM -Continue Metoprolol 25mg po qAM Plan Hyperlipidemia -Continue Crestor GERD -Continue Protonix F/E/N - Gentle IVF NSS at 80mL/hr x 2L,, electrolytes WNL, CC diet - easy to chew for sore throat Ppx - Lovenox, Protonix Code - Full per discussion with patient Dispo - Admit to medical with telemetry History of Present Illness Chief Complaint: Covid-19 Primary Care Provider: KERRY Bermudez Rulaobie Trent is an 88yo female with history of DM, HTN presenting with Covid- 19 infection. Patient has had 4 days of sore throat, fevers, chills, generalized weakness and fatigue as well as poor oral intake. She has not been able to take her medications, eat or drink much for several days. Overall she feels that her symptoms have been worsening over the last 4 days. She developed cough today productive for yellow mucus. Patient was seen by her PCP yesterday and tested POSITIVE for Covid-19. She was prescribed Paxlovid but was unable to tolerate it due to sore throat. In the ER patient febrile, HD stable. Adequate oxygenation on room air. Allergies Allergy/AdvReac Type Severity Reaction Status Date / Time No Known Allergies Allergy Unverified 01/31/24 12:36 Home Medications Medication Instructions Recorded Confirmed Type amlodipine 5 mg tablet 5 mg PO QAM 03/20/23 05/15/24 History aspirin 81 mg tablet,delayed 81 mg PO QAM 03/20/23 05/15/24 History release (Adult Low Dose Aspirin) metoprolol succinate 25 mg 0 mg PO QAM 03/20/23 05/15/24 History tablet,extended release 24 hr pantoprazole 40 mg tablet,delayed 40 mg PO QAM 03/20/23 05/15/24 History release isosorbide mononitrate 60 mg 60 mg PO QAM 06/06/23 05/15/24 History tablet,extended release 24 hr lisinopril 20 mg tablet 20 mg PO QAM 06/06/23 05/15/24 History magnesium oxide 400 mg (241.3 mg 400 mg PO QAM 06/06/23 05/15/24 History magnesium) tablet insulin glargine 100 unit/mL (3 0 unit subcut HS 08/30/23 05/15/24 History mL) subcutaneous pen (Lantus Solostar U-100 Insulin) nitroglycerin 0.4 mg sublingual 0.4 mg sublingual UD PRN Chest Pain 08/30/23 05/15/24 History tablet (Nitrostat) rosuvastatin 40 mg tablet 0 mg PO QAM 08/30/23 05/15/24 History nirmatrelvir 300 mg (150 mg See Rx Instructions .Route .COMPLEX 05/15/24 05/15/24 History x2)-ritonavir 100 mg tablet,dose pack (Paxlovid) vibegron 75 mg tablet (Gemtesa) 0 mg PO DAILY 05/15/24 05/15/24 History Past Med/Surg History Problem List Leukocytosis (Acute) Elevated troponin (Acute) Acute dehydration (Acute) Pneumonitis (Acute) COVID-19 (Acute) Sepsis (Acute) UTI (urinary tract infection) Ambulatory dysfunction (Acute) Acute UTI (urinary tract infection) (Acute) Generalized weakness (Acute) DM2 (diabetes mellitus, type 2) HTN (hypertension) Stress incontinence Urgency of urination Incontinent of urine Medical History Pneumonia Recurrent UTI Social History Smoking Status: Never smoker Second Hand Exposure: No; Do You Dip or Chew Tobacco: No; Hx Alcohol Use: No Hx Substance Use: No Preferred Language: [place] Communication Ability: Effective Documentation Liaison Required: No Beliefs That Will Affect Care: None Current Living Situation: Family Current Living Situation Comment: With daughter Feels Safe at Home: Yes Safety Concerns: Feels Safe At This Time Assistive Devices: None Review of Systems Review of Systems: All systems reviewed & are unremarkable except as noted in HPI & below Physical Exam Physical Exam: General: patient resting comfortably, NAD, non-toxic in appearance, AA&O x 4 Skin: warm, dry, intact, no rashes or lesions HEENT: NC/AT, PERRL, EOMI, anicteric sclera, conjunctiva without injection, external ear normal to inspection and nontender, nares patent, moist mucus membranes, dentition intact, no oropharyngeal lesions, neck supple, trachea midline, no LAD, no thyromegaly, no JVD Heart: +S1/S2, regular, no m/r/g Lungs: equal air entry bilaterally, no rales/rhonchi/wheezes Abd: +BS, soft, NT/ND, no masses/organomegaly/ascites Ext: warm, 2+ pulses in UE/LE bilaterally, no clubbing/cyanosis or edema Neuro: nonfocal, patient AA&O x 4, speech intact, no facial droop, moving all extremities on command with equal strength 5/5 Results & Data Results & Data Vital Signs (Past 12 Hours) Vital Signs Temp Pulse Resp BP Pulse Ox O2 Del Method 05/15/24 18:56 90 05/15/24 17:21 38.3 C H 109 H 18 131/70 97 Room Air Laboratory Results Laboratory Results WBC 14.12 K/ul (4.8-10.8) H 05/15/24 17:46 RBC 4.08 M/uL (4.20-5.40) L 05/15/24 17:46 Hgb 12.3 g/dl (12.0-16.0) 05/15/24 17:46 Hct 35.2 % (37.0-47.0) L 05/15/24 17:46 MCV 86.3 fL (80.0-100.0) 05/15/24 17:46 MCH 30.1 pg (25.0-34.0) 05/15/24 17:46 MCHC 34.9 g/dL (32.0-36.0) 05/15/24 17:46 RDW Std Deviation 38.7 fL (36.4-46.3) 05/15/24 17:46 RDW Coeff of Ingris 12.1 % (11.5-14.5) 05/15/24 17:46 Plt Count 210 K/uL (130-400) 05/15/24 17:46 MPV 10.1 fL (9.4-12.4) 05/15/24 17:46 Immature Gran % (Auto) 0.3 % 05/15/24 17:46 Neut % (Auto) 62.7 % 05/15/24 17:46 Lymph % (Auto) 25.0 % 05/15/24 17:46 [place] % (Auto) 11.5 % 05/15/24 17:46 Eos % (Auto) 0.1 % 05/15/24 17:46 Baso % (Auto) 0.4 % 05/15/24 17:46 Neut # (Auto) 8.85 K/uL (1.40-6.50) H 05/15/24 17:46 Lymph # (Auto) 3.53 K/uL (1.20-3.40) H 05/15/24 17:46 [place] # (Auto) 1.63 K/uL (0.11-0.59) H 05/15/24 17:46 Eos # (Auto) 0.02 K/uL (0.00-0.50) 05/15/24 17:46 Baso # (Auto) 0.05 K/uL (0.00-0.20) 05/15/24 17:46 Immature Gran # (Auto) 0.04 K/uL (0.01-0.20) 05/15/24 17:46 PT 11.0 Seconds (9.0-12.0) 05/15/24 17:46 INR 1.0 (0.9-1.1) 05/15/24 17:46 APTT 28 Seconds (21-31) 05/15/24 17:46 PTT Ratio 1.0 05/15/24 17:46 Sodium 136 mmol/L (136-145) 05/15/24 17:46 Potassium 4.2 mmol/L (3.5-5.1) 05/15/24 17:46 Chloride 100 mmol/L (98-107) 05/15/24 17:46 Carbon Dioxide 24 mmol/L (21-32) 05/15/24 17:46 Anion Gap 12 (3-11) H 05/15/24 17:46 BUN 20 mg/dl (6-23) 05/15/24 17:46 Creatinine 0.99 mg/dl (0.6-1.2) 05/15/24 17:46 Est Cr Clr Drug Dosing Not Reportable 05/15/24 17:46 eGFR 55.53 05/15/24 17:46 BUN/Creatinine Ratio 20.2 (10-20) H 05/15/24 17:46 Glucose 130 mg/dl (70-99(Fasting)) H 05/15/24 17:46 POC Glucose 116 mg/dl (70-99) H 05/15/24 23:48 Lactate 1.5 mmol/L (0.4-2.0) 05/15/24 17:46 Calcium 9.9 mg/dl (8.6-10.3) 05/15/24 17:46 Magnesium 1.8 mg/dl (1.7-2.4) 05/15/24 17:46 Total Bilirubin 0.9 mg/dl (0.2-1.0) 05/15/24 17:46 AST 22 U/L (13-39) 05/15/24 17:46 ALT 12 U/L (7-52) 05/15/24 17:46 Alkaline Phosphatase 52 U/L (34-104) 05/15/24 17:46 Troponin I High Sens 14.3 pg/ml (0-14) H 05/15/24 17:46 Total Protein 7.9 gm/dl (6.0-8.3) 05/15/24 17:46 Albumin 4.2 gm/dl (3.4-5.0) 05/15/24 17:46 Globulin 3.7 gm/dl (2.5-4.0) 05/15/24 17:46 Albumin/Globulin Ratio 1.1 (0.9-2) 05/15/24 17:46 Procalcitonin 0.12 ng/ml (0-0.5) 05/15/24 17:46 Impressions Chest X-Ray 05/15/24 17:25 EXAM: Radiograph of the Chest 1 View INDICATION: COVID-positive. Sore throat. TECHNIQUE: Frontal view of the chest. COMPARISON: 06/06/2023 FINDINGS: Lungs and pleural spaces: Stable chronic central bronchovascular thickening. There may be a subtle groundglass infiltrate in the left midlung. No pleural effusion or pneumothorax. Heart: Shape and configuration within normal limits allowing for technique. Mediastinum: Normal contour. Bones/joints: No fracture, erosion or dislocation. Soft tissues: No abnormality noted. No radiopaque foreign body noted. Upper abdomen: No abnormality noted. IMPRESSION: Chronic interstitial changes with possible acute groundglass infiltrate left midlung which is typical of COVID pneumonia. ACT 112: Negative or not required by law. Electronically signed by Funmilayo Main 05-15-2024 7:25 PM ECG Additional Comments: EKG with sinus tachycardia, non-specific ST-T changes but no acute ischemia Code Status & VTE Plan VTE Prophylaxis Plan VTE Prophylaxis will be ordered: Yes PG Care Time/CCT Total # of Minutes Spent Total Time Spent with Patient: Total time spent is greater than 50% in coordination of care (as documented) at patient's floor/unit and/or counseling patient: Coding Level of Care Code 89414 INT INP/OBS CARE 2/55MIN Diagnoses COVID-19 U07.1 DM2 (diabetes mellitus, type 2) E11.9 HTN (hypertension) I10
[2024-05-15] MEDS: SODIUM CHLORIDE 0.9% 1,000 ML IV ONE (21:05)
[2024-05-15] MEDS ORDERED: ONDANSETRON INJ 2 MG/ML 2 ML VIAL IV PRN (22:36)
[2024-05-15] MEDS ORDERED: GLUCAGON FOR INJ 1 MG VIAL SQ PRN (22:36)
[2024-05-15] MEDS ORDERED: guaiFENesin SUGAR FREE 100 MG/5 ML UDC PO PRN (22:36)
[2024-05-15] MEDS ORDERED: GLUCOSE 10 TAB/TUBE PO PRN (22:36)
[2024-05-15] MEDS ORDERED: DEXTROSE 50% 50 ML SYRINGE IV PRN (22:36)
[2024-05-15] MEDS ORDERED: CARBOHYDRATES FOR HYPOGLYCEMIA PO PRN (22:36)
[2024-05-15] MEDS ORDERED: GLUCOSE 40% GEL 15 GM TUBE PO PRN (22:36)
[2024-05-15] MEDS ORDERED: ACETAMINOPHEN IV PRN (23:03)
[2024-05-15] MEDS: Patient's HEIGHT &/or WEIGHT Needed STA (23:40)
[2024-05-15] MEDS: AZITHROMYCIN 250 MG TAB PO ONE (23:50)
[2024-05-15] MEDS: ENOXAPARIN INJ 40 MG/0.4 ML SYR SQ SCH (23:50)
[2024-05-15] MEDS: SODIUM CHLORIDE 0.9% 1,000 ML IV SCH (23:51)
[2024-05-16] MEDS: INSULIN ASPART PER UNIT CHARGE SC SCH (00:09)
[2024-05-16] MEDS: dexAMETHasone 6 MG in SYRINGE 0 ML IV ONE (02:50)
[2024-05-16 06:42] LABS: Hematocrit (blood only) 32.5 % (37.0-47.0); Hemoglobin 11.1 g/dl (12.0-16.0); Mean Corpuscular Hemoglobin 29.8 pg (25.0-34.0); Mean Corpuscular Hgb Conc 34.2 g/dL (32.0-36.0); Mean Corpuscular Volume 87.1 fL (80.0-100.0); Mean Platelet Volume 9.9 fL (9.4-12.4); Platelet Count 167 K/uL (130-400); RDW Coefficient of Variation 12.2 % (11.5-14.5); RDW Standard Deviation 39.4 fL (36.4-46.3); Red Blood Count 3.73 M/uL (4.20-5.40); White Blood Count 7.33 K/ul (4.8-10.8)
[2024-05-16 07:02] LABS: BUN Creatinine Ratio 27.4 (10-20); Calcium 9.5 mg/dl (8.6-10.3); Creatinine Clr Calc Pharmacy 37.2 ml/min; Potassium 4.6 mmol/L (3.5-5.1)
[2024-05-16 07:09] LABS: Troponin I High Sensitivity 12.3 pg/ml (0-14)
[2024-05-16 07:19] VITALS: BP 149/67; RESP 17; TEMP 98.4; O2SAT 98
[2024-05-16] MEDS: amLODIPine BESYLATE 5 MG TAB PO SCH (08:05)
[2024-05-16] MEDS: ISOSORBIDE MONO EXTENDED REL 60 MG TABCR PO SCH (08:06)
[2024-05-16] MEDS: ASPIRIN 81 MG ECTAB PO SCH (08:06)
[2024-05-16] MEDS: lisinopril 20 MG TAB PO SCH (08:06)
[2024-05-16] MEDS: PANTOprazole 40 MG TAB PO SCH (08:06)
[2024-05-16] MEDS: ROSUVASTATIN CALCIUM 20 MG TAB PO SCH (08:07)
--- NOTE | 2024-05-16 08:40 | Electrocardiogram Report ---
Test Reason : Blood Pressure : */* mmHG Vent. Rate : 102 BPM Atrial Rate : 102 BPM P-R Int : 146 ms QRS Dur : 74 ms QT Int : 332 ms P-R-T Axes : 26 -3 78 degrees QTcB Int : 432 ms Sinus tachycardia Minor Nonspecific ST abnormality Anterolateral leads Abnormal ECG When compared with ECG of 30-Aug-2023 12:35, Criteria for Septal infarct are no longer Present Confirmed by Saturnino Garcia ([id number]) on 05/16/2024 8:39:44 AM Referred By: Confirmed By: Saturnino Garcia
[2024-05-16] MEDS ORDERED: AZITHROMYCIN 250 MG TAB PO SCH (09:00)
[2024-05-16] MEDS ORDERED: METOPROLOL SUCC 25MG EXT REL TAB PO SCH (09:00)
[2024-05-16] MEDS: METOPROLOL SUCC 25MG EXT REL TAB PO SCH (09:20)
[2024-05-16] MEDS: DOCUSATE SODIUM 100 MG CAP PO PRN (11:17)
--- NOTE | 2024-05-16 15:39 | Discharge Summary ---
Discharge Summary Date of Service May 16, 2024 Principal Dx & Hospital Course #1 = Principal Diagnosis (1) COVID-19: 88yo female with history of HTN and DM presenting with several days of generalized illness - fever, chills, weakness and decreased oral intake. Severe sore throat with inability to swallow pills over the last few days. Patient is not hypoxic - on room air with adequate oxygenation Patient improved with dexamethasone. Will continue dexamethasone for 5 more days. Patient is not hypoxic and does not require oxygen.her symptoms also improved. PT evaluated patient, she can go home with rolling walker. (2) DM2 (diabetes mellitus, type 2): DM -elevated HgbA1C at 11.5 on 08/31/23. Patient reports she is currently not taking insulin but is on Ozempic -resume home meds (3) HTN (hypertension): Blood pressure mildly elevated. Patient reports she has not been able to take her medications for several dasy -Continue Amlodipine 5mg po qAM -Continue Isosorbide mononitrate 60mg po qAM -Continue Lisinopril 20mg po qPM -Continue Metoprolol 25mg po qAM Plan Hyperlipidemia -Continue Crestor GERD -Continue Protonix demand ischemia Trops 14.3/12.3, HR 109 Treatment: tele monitoring, serial trops, treatment of COVID pneumonia, continue chronic metoprolol, norvasc, ASA , zestril and imdur Risk Factor(s): age, COVID pneumonia, DM, HTN Underweight with BMI 19.1 BMI: A significantly high (>40) or significantly low (<19.9) BMI recommend life style changes. Admission HPI Per Admitting Provider Rula Trent is an 88yo female with history of DM, HTN presenting with Covid- 19 infection. Patient has had 4 days of sore throat, fevers, chills, generalized weakness and fatigue as well as poor oral intake. She has not been able to take her medications, eat or drink much for several days. Overall she feels that her symptoms have been worsening over the last 4 days. She developed cough today productive for yellow mucus. Patient was seen by her PCP yesterday and tested POSITIVE for Covid-19. She was prescribed Paxlovid but was unable to tolerate it due to sore throat. In the ER patient febrile, HD stable. Adequate oxygenation on room air. Discharge Exam General: No acute distress, nondiaphoretic. Weak. Skin: The skin was without rashes, erythema, edema, or bruising. No rash noted on patient's back. Cardiac: Regular rate and rhythm without murmurs gallops or rubs. Pulm: Clear to auscultation bilaterally without wheezes, rales or rhonchi. No retractions or accessory muscle use. Abdominal: Positive bowel sounds x 4. Soft, nontender, without masses or organomegaly. No guarding or rebound tenderness. Neuro: A&O x3. No focal neurological deficits. Discharge Plan Discharge Items Patient Disposition: Home - Self-Care Reason For Visit: COVID-19, PNEUMONIA Discharge Diagnosis: covid 19 Activity: Resume your previous activity Non-emergency contact: Primary Care Provider Call non-emergency contact if: you have any medication questions Follow-up/Referrals: Tessa Gomes CRNP [Primary Care Provider] - (PCP office will call Pt to schedule follow up) Diet: Carb Consistent or DM2 Diet Texture: Easy to Chew Addtl Attending Provider Instructions: You were diagnosed with COVID 19. Thankfully, you were not found to need oxygen supplementation. Given that you are breathing well and have no fevers we will discharge you. We will place you on dexamethasone once a day for 5 more days. This will help decrease any complications from COVID 19. Pending Studies at Discharge: No Stand-Alone Forms: [facility], Smoking Cessation Medications and DC Order Prescriptions: New dexamethasone 6 mg tablet 6 mg PO DAILY Qty: 5 0RF Continued amlodipine 5 mg tablet 5 mg PO QAM metoprolol succinate 25 mg tablet extended release 24 hr 0 mg PO QAM Rx Instructions: Per pharmacy, last filled 01/2024 x90 day supply. Original Directions: 25mg by mouth once daily aspirin [Adult Low Dose Aspirin] 81 mg tablet,delayed release (DR/EC) 81 mg PO QAM Rx Instructions: Unable to verify OTC meds at this date/time. pantoprazole 40 mg tablet,delayed release (DR/EC) 40 mg PO QAM Gemtesa 75 mg tablet 0 mg PO DAILY Rx Instructions: Unable to verify at this date/time. Not on file w/ pharmacy. Original Directions: 75mg by mouth once daily isosorbide mononitrate 60 mg tablet extended release 24 hr 60 mg PO QAM lisinopril 20 mg tablet 20 mg PO QAM magnesium oxide 400 mg (241.3 mg magnesium) tablet 400 mg PO QAM Rx Instructions: Unable to verify OTC meds at this date/time. insulin glargine [Lantus Solostar U-100 Insulin] 100 unit/mL (3 mL) insulin pen 0 unit SUBCUT HS Rx Instructions: Unable to verify at this date/time. Not on file w/ pharmacy. Original Directions: 23units at bedtime rosuvastatin 40 mg tablet 0 mg PO QAM Rx Instructions: Per pharmacy, last filled 01/2024 x90 day supply. Original Directions: 40mg by mouth once daily nitroglycerin [Nitrostat] 0.4 mg Tablet, Sublingual 0.4 mg sublingual UD PRN (Reason: Chest Pain) Discontinued Paxlovid 300 mg (150 mg x 2)-100 mg tablets,dose pack See Rx Instructions .ROUTE .COMPLEX Rx Instructions: Start Date 05/14/24 x5 day supply. take 2 NIRMATRELVIR tablets with 1 RITONAVIR tablet by mouth twice a day for 5 days Discharge Orders: Discharge Order (Routine); Ordered 05/16/24 Ordered By: Pedro Thomas Admission Data Admit Date/Time: 05/15/24 20:01 Attending Provider: Pedro Thomas Admit Provider: Leena Perales Primary Care Provider: Tessa Gomes Other Providers: Leena Perales; [facility] Other Interventions: Discharge Summary Assessment (RN) Last Done: 05/16/24 15:18 Hospital Stay Data Pending Results Patient Have Any Pending Studies at Discharge: No Discharge Instructions Given to Patient (Per Discharging Provider) You were diagnosed with COVID 19. Thankfully, you were not found to need oxygen supplementation. Given that you are breathing well and have no fevers we will discharge you. We will place you on dexamethasone once a day for 5 more days. This will help decrease any complications from COVID 19. Total Time Total Time Spent Total Time Spent (In Minutes): 32 Coding Level of Care Code 07070 INP/OBS DISCH >30 MIN Diagnoses COVID-19 U07.1 DM2 (diabetes mellitus, type 2) E11.9 HTN (hypertension) I10
[2024-05-16 17:48] VITALS: PULSE 69
[2024-05-16] MEDS ORDERED: cefTRIAXone SODIUM 1,000 MG/50 ML BAG IV SCH (18:00)
== END 2024-05-16 17:55 | disposition home health service (06) | DRG 177 ==
LOC: ED 17:16 → INTOOBSV 20:01 → SUATTDRO 20:01 → 2S 20:01